=== PATIENT | female | born 1950 | race Two or more races ===

== ENCOUNTER 2024-03-26 16:22 | Inpatient (IN) | payer OTHER ==
[~2024-03-26] VITALS: Ht 170.2 cm; Wt 105.7 kg
[2024-03-26] MEDS ORDERED: LANTUS SOL100 UNIT/1 (16:48)
[2024-03-26] MEDS ORDERED: HUMULIN 70100 UNIT/2 (16:49)
[2024-03-26] MEDS ORDERED: NEURONTIN800 MG (16:49)
--- NOTE | 2024-03-26 16:49 | NUR ---
PTE ALERTA Y ORIENTADA X3, REFIERE HACE 6 MESES LE AMPUTARON 2 DEDOS DE PIE IZQ EN ISHAAN DE HATO YUNI POR DRA.MARIA GA. REFIERE VENIR HOY PORQUE LA HERIDA NO ZOLTAN Y ESTA SUPURANDO, SE OBSERVA AREA INFLAMADA. REFIERE DOLOR. SE JUAN SV Y SE UBICA
[2024-03-26] MEDS ORDERED: 0.9 % SODIUM CHLORIDE 1,000 ML IV SCH (17:30)
--- NOTE | 2024-03-26 17:59 | NUR ---
SE EDUCA A PTE SOBRE TX MEDICO ESTA REFIERE ENTENDER. SE JUAN MUESTRAS DE LABORATORIO UTILIZANDO MEDIDAS ASEPTICAS. SE COLOCA H/L DEBBIE DE EDEMA. SE ADMINISTRA MEDICAMENTOS LOS CUALES TOLERA. SE NOTIFICA ESTUDIO DE RX PENDIENTE.
[2024-03-26] MEDS ORDERED: PIPERACILLIN/TAZOBACTAM SODIUM 3.375 GM in 0.9 % SODIUM CHLORIDE 100 ML IV SCH (18:00)
[2024-03-26 18:07] LABS: HEMATOCRIT 34.4 % (36.0-45.00); HEMOGLOBIN 11.2 g/dL (12.0-15.00); MEAN CELL VOLUME 87.9 fL (80.00-100.00); MEAN CORPUSCULAR HEMOGLOBIN 28.7 pg (27.00-32.0); MEAN CORPUSCULAR HGB CONC 32.7 g/dl (32.0-36.0); PLATELET COUNT 234 K/uL (150-450); RED BLOOD COUNT 3.91 M/uL (4.00-6.00); RED CELL DISTRIBUTION WIDTH 17.3 % (11.5-14.5)
[2024-03-26 18:08] LABS: ERYTHROCYTE SEDIMENTATION RATE > 130 mm/hr
[2024-03-26 18:30] LABS: ALBUMIN 2.8 gm/dL (3.4-5.0); BILIRUBIN TOTAL 0.66 mg/dL (0.3-1.2); CALCIUM 9.2 mg/dL (8.5-10.1); CREATININE SERUM 1.07 mg/dL (0.55-1.02); GFR 50.55; GLOBULINA 6.1 G/DL (2.4-3.5); TOTAL PROTEIN 8.9 gm/dL (6.4-8.2)
[2024-03-26 18:33] LABS: C-REACTIVE PROTEIN 4.83 MG/DL (0.00-0.29); POTASSIUM 4.95 mEq/L (3.5-5.1)
[2024-03-26] MEDS ORDERED: DEXTROSE 50 % IN WATER 0.5 G/ML DISP.SYRIN IV PRN (22:15)
[2024-03-26] MEDS ORDERED: INSULIN LISPRO 1,000 UNIT/10 ML UNITS SUBCUTANEO PRN (22:15)
[2024-03-26] MEDS ORDERED: FAMOTIDINE/PF 20 MG/2 ML VIAL IV SCH (22:31)
[2024-03-26] MEDS ORDERED: KETOROLAC TROMETHAMINE 30 MG VIAL IM SCH (22:35)
[2024-03-27 04:38] VITALS: BP 135/61; O2SAT 97
[2024-03-27 07:50] VITALS: BP 107/53; O2SAT 97
[2024-03-27] MEDS ORDERED: ENALAPRIL MALEATE 2.5 MG TABLET PO SCH (09:00)
[2024-03-27 17:00] VITALS: BP 147/67; O2SAT 99
[2024-03-28 00:47] VITALS: BP 160/74; O2SAT 98
[2024-03-28 08:00] VITALS: BP 90/60
[2024-03-28 16:00] VITALS: BP 129/70; O2SAT 95
[2024-03-28 16:10] LABS: CALCIUM 8.9 mg/dL (8.5-10.1); CREATININE SERUM 1.03 mg/dL (0.55-1.02); GFR 52.82; POTASSIUM 4.85 mEq/L (3.5-5.1)
[2024-03-28] MEDS ORDERED: KETOROLAC TROMETHAMINE 30 MG VIAL IV PRN (18:26)
[2024-03-29 00:43] VITALS: BP 142/81; O2SAT 98
[2024-03-29 09:05] VITALS: BP 97/54; O2SAT 96
[2024-03-29 09:38] LABS: CALCIUM 8.8 mg/dL (8.5-10.1); CREATININE SERUM 1.11 mg/dL (0.55-1.02); GFR 48.45; POTASSIUM 5.01 mEq/L (3.5-5.1)
[2024-03-29 09:39] LABS: HEMOGLOBIN 9.8 g/dL (12.0-15.00); MEAN CELL VOLUME 87.9 fL (80.00-100.00); MEAN CORPUSCULAR HEMOGLOBIN 28.8 pg (27.00-32.0); MEAN CORPUSCULAR HGB CONC 32.8 g/dl (32.0-36.0); PLATELET COUNT 199 K/uL (150-450); RED BLOOD COUNT 3.41 M/uL (4.00-6.00); RED CELL DISTRIBUTION WIDTH 17.3 % (11.5-14.5)
[2024-03-29 09:40] VITALS: BP 119/53
[2024-03-29 16:40] VITALS: BP 147/66; O2SAT 98
[2024-03-29] MEDS ORDERED: VANCOMYCIN HCL 1,000 MG VIAL IV SCH (21:00)
[2024-03-30 00:13] VITALS: BP 135/65; O2SAT 99
[2024-03-30 08:00] VITALS: BP 123/74; O2SAT 95
[2024-03-30 16:00] VITALS: BP 162/84; O2SAT 100
[2024-03-31 01:50] VITALS: BP 127/58; O2SAT 97
[2024-03-31 08:53] VITALS: BP 134/58
[2024-03-31 13:36] LABS: CREATININE SERUM 1.03 mg/dL (0.55-1.02); GFR 52.82; POTASSIUM 4.31 mEq/L (3.5-5.1)
[2024-03-31 16:05] VITALS: BP 154/61; O2SAT 98
[2024-04-01] VITALS: BP 142/65; O2SAT 97
[2024-04-01 08:52] VITALS: BP 144/64; O2SAT 96
[2024-04-01 16:39] VITALS: BP 100/60; O2SAT 98
[2024-04-01 19:03] LABS: URINE APPEARANCE Clear; URINE BILIRRUBIN Negative (NEGATIVE); URINE BLOOD Negative; URINE COLOR Yellow; URINE GLUCOSE Negative (NEGATIVE); URINE KETONE Trace (NEGATIVE); URINE LEUKOCYTE Negative; URINE NITRATE Negative; URINE PROTEIN 30 (NEGATIVE); URINE UROBILINOGEN 0.2 E.U./dl
[2024-04-01 19:06] LABS: URINE BACTERIA 7.5 uL (0.0-1933); URINE EPITHELIAL CELLS 6.6 uL (0.0-38.8)
[2024-04-01 19:10] LABS: URINE RBC 0.9 uL (0.0-20.8); URINE WBC 0.6 uL (0.0-23.2)
[2024-04-02] VITALS: BP 156/67; O2SAT 97
[2024-04-02 08:00] VITALS: BP 114/65; O2SAT 95
[2024-04-02 09:31] LABS: ALBUMIN 2.3 gm/dL (3.4-5.0); BILIRUBIN TOTAL 0.51 mg/dL (0.3-1.2); CALCIUM 8.4 mg/dL (8.5-10.1); CREATININE SERUM 0.88 mg/dL (0.55-1.02); GFR 63.34; GLOBULINA 4.6 G/DL (2.4-3.5); POTASSIUM 4.19 mEq/L (3.5-5.1); TOTAL PROTEIN 6.9 gm/dL (6.4-8.2)
[2024-04-02] MEDS ORDERED: FUROsemide 20 MG/2 ML VIAL IV NR (12:00)
[2024-04-02 16:39] VITALS: BP 148/84; O2SAT 99
[2024-04-03 00:38] VITALS: BP 139/63; O2SAT 100
[2024-04-03 08:00] VITALS: BP 138/62; O2SAT 97
[2024-04-03 14:55] LABS: INR 1.34; PROTHROMBIN TIME 13.8 SECONDS (9.0-11.5)
[2024-04-03 16:00] VITALS: BP 134/78
[2024-04-03] MEDS ORDERED: PIPERACILLIN/TAZOBACTAM SODIUM 3.375 GM in 0.9 % SODIUM CHLORIDE 100 ML IV SCH (18:00)
[2024-04-03] MEDS ORDERED: FAMOTIDINE/PF 20 MG/2 ML VIAL IV SCH (22:06)
[2024-04-04 01:00] VITALS: BP 147/79; O2SAT 97
[2024-04-04 08:00] VITALS: BP 136/83; O2SAT 100
[2024-04-04] MEDS ORDERED: KETOROLAC TROMETHAMINE 30 MG VIAL IV SCH (17:00)
[2024-04-04] MEDS ORDERED: GABAPENTIN 300 MG CAPSULE PO SCH (17:00)
[2024-04-04] MEDS ORDERED: KETOROLAC TROMETHAMINE 30 MG VIAL ONE (19:13)
[2024-04-04 19:45] VITALS: BP 137/63; O2SAT 99
[2024-04-05 00:43] VITALS: BP 136/87; O2SAT 98
[2024-04-05 08:00] VITALS: BP 115/59; O2SAT 100
[2024-04-05] MEDS ORDERED: CEFTRIAXONE SODIUM 2,000 MG in 0.9 % SODIUM CHLORIDE 100 ML IV SCH (14:09)
[2024-04-05 16:00] VITALS: BP 169/78; O2SAT 95
[2024-04-05] MEDS ORDERED: METROnidazole 500 MG TABLET PO SCH (17:00)
[2024-04-06 00:49] VITALS: BP 122/56; O2SAT 97
[2024-04-06 08:00] VITALS: BP 114/61; O2SAT 98
[2024-04-06] MEDS ORDERED: VANCOMYCIN HCL 5 MG/ML REDILUIDO IV SCH (09:00)
[2024-04-06 16:00] VITALS: BP 143/72; O2SAT 98
[2024-04-07 00:42] VITALS: BP 143/80; O2SAT 99
[2024-04-07 08:00] VITALS: BP 147/67; O2SAT 99
[2024-04-07] MEDS ORDERED: FUROsemide 20 MG/2 ML VIAL IV STA (14:01)
[2024-04-07 16:00] VITALS: BP 126/60; O2SAT 95
[2024-04-07] MEDS ORDERED: IPRATROPIUM BROMIDE 0.5 MG/2.5 ML AMPUL.NEB IH SCH (17:00)
[2024-04-07] MEDS ORDERED: BUDESONIDE 0.5 MG/2 ML AMPUL.NEB IH SCH (21:00)
[2024-04-07] MEDS ORDERED: FUROsemide 20 MG/2 ML VIAL IV SCH (21:00)
[2024-04-07] MEDS ORDERED: FAMOtidine 20 MG TABLET PO SCH (21:00)
[2024-04-08 08:00] VITALS: BP 126/59; O2SAT 95
[2024-04-08] MEDS ORDERED: GUAIFENESIN 200 MG/10 ML BLIST.PACK PO SCH (12:00)
[2024-04-08 13:11] LABS: HEMATOCRIT 32.6 % (36.0-45.00); HEMOGLOBIN 10.8 g/dL (12.0-15.00); MEAN CELL VOLUME 89.7 fL (80.00-100.00); MEAN CORPUSCULAR HEMOGLOBIN 29.6 pg (27.00-32.0); PLATELET COUNT 181 K/uL (150-450); RED BLOOD COUNT 3.64 M/uL (4.00-6.00); RED CELL DISTRIBUTION WIDTH 18.5 % (11.5-14.5)
[2024-04-08 13:48] LABS: ALBUMIN 2.7 gm/dL (3.4-5.0); BILIRUBIN TOTAL 0.45 mg/dL (0.3-1.2); CALCIUM 8.7 mg/dL (8.5-10.1); CREATININE SERUM 1.05 mg/dL (0.55-1.02); GFR 51.66; GLOBULINA 5.2 G/DL (2.4-3.5); POTASSIUM 4.56 mEq/L (3.5-5.1); TOTAL PROTEIN 7.9 gm/dL (6.4-8.2)
[2024-04-08 16:00] VITALS: BP 133/79; O2SAT 95
[2024-04-09] VITALS: BP 150/78; O2SAT 95
[2024-04-09 08:00] VITALS: BP 105/68; O2SAT 97
[2024-04-09 10:37] LABS: HEMATOCRIT 29.4 % (36.0-45.00); HEMOGLOBIN 9.8 g/dL (12.0-15.00); MEAN CELL VOLUME 90.5 fL (80.00-100.00); MEAN CORPUSCULAR HEMOGLOBIN 30.1 pg (27.00-32.0); MEAN CORPUSCULAR HGB CONC 33.3 g/dl (32.0-36.0); PLATELET COUNT 162 K/uL (150-450); RED BLOOD COUNT 3.25 M/uL (4.00-6.00); RED CELL DISTRIBUTION WIDTH 18.2 % (11.5-14.5)
[2024-04-09 11:20] LABS: ALBUMIN 2.4 gm/dL (3.4-5.0); BILIRUBIN TOTAL 0.44 mg/dL (0.3-1.2); CALCIUM 8.2 mg/dL (8.5-10.1); CREATININE SERUM 0.97 mg/dL (0.55-1.02); GFR 56.61; GLOBULINA 4.4 G/DL (2.4-3.5); POTASSIUM 4.12 mEq/L (3.5-5.1); TOTAL PROTEIN 6.8 gm/dL (6.4-8.2)
[2024-04-09 16:00] VITALS: BP 136/79; O2SAT 95
[2024-04-09] MEDS ORDERED: FUROsemide 20 MG/2 ML VIAL IV SCH (21:20)
[2024-04-09] MEDS ORDERED: FUROsemide 20 MG/2 ML VIAL ONE (21:50)
[2024-04-10] VITALS: BP 151/68; O2SAT 95
[2024-04-10 08:00] VITALS: BP 166/73; O2SAT 100
[2024-04-10 16:00] VITALS: BP 121/63; O2SAT 97
[2024-04-10] MEDS ORDERED: BUDESONIDE 0.5 MG/2 ML AMPUL.NEB IH ONE (20:45)
[2024-04-11 00:40] VITALS: BP 139/64; O2SAT 96
[2024-04-11 08:19] VITALS: BP 125/60; O2SAT 97
[2024-04-11] MEDS ORDERED: BENZONATATE 100 MG CAPSULE PO SCH (13:00)
[2024-04-11 16:00] VITALS: BP 133/60; O2SAT 97
[2024-04-12 01:04] VITALS: BP 156/72
[2024-04-12 07:15] LABS: HEMATOCRIT 31.6 % (36.0-45.00); HEMOGLOBIN 10.5 g/dL (12.0-15.00); MEAN CELL VOLUME 90.2 fL (80.00-100.00); MEAN CORPUSCULAR HGB CONC 33.2 g/dl (32.0-36.0); PLATELET COUNT 184 K/uL (150-450); RED CELL DISTRIBUTION WIDTH 19.8 % (11.5-14.5)
[2024-04-12 07:42] LABS: ALBUMIN 2.6 gm/dL (3.4-5.0); BILIRUBIN TOTAL 0.41 mg/dL (0.3-1.2); CALCIUM 8.4 mg/dL (8.5-10.1); CREATININE SERUM 1.11 mg/dL (0.55-1.02); GFR 48.45; GLOBULINA 4.6 G/DL (2.4-3.5); POTASSIUM 4.38 mEq/L (3.5-5.1); TOTAL PROTEIN 7.2 gm/dL (6.4-8.2)
[2024-04-12] MEDS ORDERED: ENALAPRIL MALEATE 5 MG TABLET PO SCH (09:00)
[2024-04-13 01:01] VITALS: BP 129/87; O2SAT 99
[2024-04-13] MEDS ORDERED: CEFTRIAXONE SODIUM 2,000 MG VIAL ONE (07:53)
[2024-04-13 08:10] VITALS: BP 128/83; O2SAT 98
[2024-04-13 16:32] VITALS: BP 140/55; O2SAT 95
[2024-04-14] VITALS: BP 147/82; O2SAT 97
[2024-04-14] MEDS ORDERED: CEFTRIAXONE SODIUM 2,000 MG VIAL ONE (07:26)
[2024-04-14 08:16] VITALS: BP 135/82; O2SAT 98
[2024-04-14 16:00] VITALS: BP 167/71; O2SAT 95
[2024-04-14] MEDS ORDERED: ASPIRIN 81 MG TAB.CHEW PO SCH (16:15)
[2024-04-14] MEDS ORDERED: ATORVASTATIN CALCIUM 20 MG TABLET PO SCH (16:16)
[2024-04-15] VITALS: BP 124/57; O2SAT 97
[2024-04-15] MEDS ORDERED: CEFTRIAXONE SODIUM 2,000 MG VIAL ONE (08:10)
[2024-04-15 09:44] VITALS: BP 114/78; O2SAT 98
[2024-04-15] MEDS ORDERED: BUDESONIDE 0.5 MG/2 ML AMPUL.NEB IH NR (12:00)
[2024-04-15 16:00] VITALS: BP 122/57; O2SAT 94
[2024-04-15] MEDS ORDERED: BUDESONIDE 0.5 MG/2 ML AMPUL.NEB IH SCH (21:00)
[2024-04-16] VITALS: BP 140/54; O2SAT 96
[2024-04-16] MEDS ORDERED: CEFTRIAXONE SODIUM 2,000 MG VIAL ONE (07:53)
[2024-04-16 08:00] VITALS: BP 158/72; O2SAT 97
[2024-04-16 16:41] VITALS: BP 161/65; O2SAT 95
[2024-04-17 01:14] VITALS: BP 128/60; O2SAT 97
[2024-04-17 07:39] LABS: HEMATOCRIT 31.5 % (36.0-45.00); HEMOGLOBIN 10.3 g/dL (12.0-15.00); MEAN CELL VOLUME 91.6 fL (80.00-100.00); MEAN CORPUSCULAR HGB CONC 32.7 g/dl (32.0-36.0); PLATELET COUNT 163 K/uL (150-450); RED BLOOD COUNT 3.45 M/uL (4.00-6.00); RED CELL DISTRIBUTION WIDTH 20.7 % (11.5-14.5)
[2024-04-17 07:46] VITALS: BP 120/72; O2SAT 98
[2024-04-17 07:59] LABS: ALBUMIN 2.5 gm/dL (3.4-5.0); BILIRUBIN TOTAL 0.5 mg/dL (0.3-1.2); CALCIUM 8.1 mg/dL (8.5-10.1); CREATININE SERUM 0.95 mg/dL (0.55-1.02); GFR 57.99; GLOBULINA 4.4 G/DL (2.4-3.5); POTASSIUM 3.65 mEq/L (3.5-5.1); TOTAL PROTEIN 6.9 gm/dL (6.4-8.2)
[2024-04-17] MEDS ORDERED: CEFTRIAXONE SODIUM 2,000 MG VIAL ONE (08:04)
[2024-04-17] MEDS ORDERED: ONDANSETRON HCL 4 MG in 0.9 % SODIUM CHLORIDE 50 ML IV PRN (12:15)
[2024-04-17 16:53] VITALS: BP 117/79; O2SAT 96
[2024-04-17] MEDS ORDERED: CLOTRIMAZOLE 10 MG TROCHE MM SCH (21:00)
[2024-04-18 00:05] LABS: C-REACTIVE PROTEIN 0.83 MG/DL (0.00-0.29)
[2024-04-18 00:57] VITALS: BP 159/70; O2SAT 99
[2024-04-18 08:00] VITALS: BP 135/63; O2SAT 96
[2024-04-18] MEDS ORDERED: CEFTRIAXONE SODIUM 2,000 MG VIAL ONE (08:02)
[2024-04-18] MEDS ORDERED: EMOLLIENTS 6 OZ BOTTLE TOP SCH (09:00)
[2024-04-19] VITALS: BP 129/62; O2SAT 95
[2024-04-19 08:00] VITALS: BP 135/65; O2SAT 100
[2024-04-19 16:00] VITALS: BP 162/78; O2SAT 95
== END 2024-04-19 17:30 | disposition home or self-care (01) | DRG 464 ==
LOC: ER 16:24 → SURH 22:30 → SEC-K 22:30 → SURH 03-27 00:48
PROVIDERS: General Practice; Internal Medicine; Internal Medicine Infectious Disease; Specialist; ADMIT Internal Medicine; ATTEND Internal Medicine
PROC: 0QBP0ZZ Excision of Left Metatarsal, Open Approach (ICD-10-PCS; 2024-03-28)
PROC: BL31ZZZ Magnetic Resonance Imaging (MRI) of Lower Extremity Connective Tissue (ICD-10-PCS; 2024-03-28)
PROC: 02HV33Z Insertion of Infusion Device into Superior Vena Cava, Percutaneous Approach (ICD-10-PCS; 2024-03-31)
PROC: 3E04329 Introduction of Other Anti-infective into Central Vein, Percutaneous Approach (ICD-10-PCS; 2024-03-31)
PROC: 0QBP0ZZ Excision of Left Metatarsal, Open Approach (ICD-10-PCS; 2024-04-04)
PROC: 0JBR0ZZ Excision of Left Foot Subcutaneous Tissue and Fascia, Open Approach (ICD-10-PCS; principal; 2024-04-04 17:00)
PROC: 3E0F7GC Introduction of Other Therapeutic Substance into Respiratory Tract, Via Natural or Artificial Opening (ICD-10-PCS; 2024-04-07)
PROC: B44HZZZ Ultrasonography of Bilateral Lower Extremity Arteries (ICD-10-PCS; 2024-04-09)
DX: T87.44 Infection of amputation stump, left lower extremity (principal); E11.52 Type 2 diabetes mellitus with diabetic peripheral angiopathy with gangrene; L97.528 Non-pressure chronic ulcer of other part of left foot with other specified severity; M86.172 Other acute osteomyelitis, left ankle and foot; M86.672 Other chronic osteomyelitis, left ankle and foot; E11.621 Type 2 diabetes mellitus with foot ulcer; J45.909 Unspecified asthma, uncomplicated; E86.0 Dehydration; R79.82 Elevated C-reactive protein (CRP); I12.9 Hypertensive chronic kidney disease with stage 1 through stage 4 chronic kidney disease, or unspecified chronic kidney disease; E11.22 Type 2 diabetes mellitus with diabetic chronic kidney disease; N18.32 Chronic kidney disease, stage 3b; Z79.4 Long term (current) use of insulin; B96.4 Proteus (mirabilis) (morganii) as the cause of diseases classified elsewhere; B95.1 Streptococcus, group B, as the cause of diseases classified elsewhere; B95.62 Methicillin resistant Staphylococcus aureus infection as the cause of diseases classified elsewhere; B95.2 Enterococcus as the cause of diseases classified elsewhere; B96.89 Other specified bacterial agents as the cause of diseases classified elsewhere

== ENCOUNTER 2024-05-09 09:31 | Inpatient (IN) | payer OTHER ==
[~2024-05-09] VITALS: Ht 160 cm; Wt 149.7 kg
[~2024-05-09 09:31] MED LIST: HUMULIN 70100 UNIT/2; LANTUS SOL100 UNIT/1; NEURONTIN800 MG
--- NOTE | 2024-05-09 09:43 | NUR ---
SE RECIBE PTE ALERTA Y ORIENTADA X3 EN AMBULANCIA LA MISMA SE OBSERVA CON CANULA NASAL A 3 LITROS Y PICC LINE EN BRAZO DERECHO. PTE REFIERE DOLOR DE PECHO Y DIFUCLTAD RESPIRATORIA DESDE HACE 4 OH. SE REALIZAN VITALES Y SE REALIZA EKG EL CUAL SE PRESENTA A DRA CARRERO. LA MISMA REFIERE QUE SE COLOQUE EN CHEST PAIN.
[2024-05-09] MEDS ORDERED: ASPIRIN 81 MG TAB.CHEW PO ONE (09:45)
[2024-05-09] MEDS ORDERED: MORPHINE SULFATE 4 MG/ML VIAL IV ONE (09:45)
[2024-05-09] MEDS ORDERED: 0.9 % SODIUM CHLORIDE 1,000 ML IV ONE (09:45)
[2024-05-09] MEDS ORDERED: FUROsemide 20 MG/2 ML VIAL IV ONE (09:45)
[2024-05-09] MEDS ORDERED: BENZONATATE 200 MG CAPSULE PO ONE (09:45)
[2024-05-09] MEDS ORDERED: NIFEDIPINE 10 MG CAPSULE PO ONE ×2 (09:45→09:53)
[2024-05-09] MEDS ORDERED: LEVALBUTEROL HCL 1.25 MG/3 ML SOLUTION IH ONE (09:45)
[2024-05-09] MEDS ORDERED: LEVALBUTEROL HCL 0.63 MG/3 ML SOLUTION IH ONE (09:50)
[2024-05-09] MEDS ORDERED: FUROsemide 20 MG/2 ML VIAL ONE ×2 (09:54→14:40)
[2024-05-09 10:06] LABS: ABG PH 7.416 (7.35-7.45); ABG PO2 83.9 mmHg (80-100); ABG pCO2 37.5 mmHg (35-45); BASE EXCESS -0.6 mmol/l; BICARBONATE 23.6 mmol/l (23-25); SaO2 96.4 %; Tco2 24.7 mmol/l
[2024-05-09 10:19] LABS: o2 28 %
[2024-05-09 10:20] LABS: allen test SATISFACTORY; puncture site RADIAL LEFT
--- NOTE | 2024-05-09 10:44 | NUR ---
SE RECIBE PTE EN UNDIDAD DE CHEST PAIN ELENO #18 ALERTA Y ORIENTADA X3, SE LE ORIENTA SOBRE TX MEDICO Y REFIERE ENTENDER, SE REALIZA JAVON DE MUESTRAS Y ADMINISTRA MEDICAMENTO SHIELA ORDEN MEDICA. SE OBSERVA PTE CON PICC LINE EN BRAZO DERECHO EL MISMO PATENTE DEBBIE DE EDEMA Y ERRITEMA. PTE CON CANULA NASAL BAJANDO A 3LPM Y GUERRERO CATHETER CON ORINA COLOR AMARILLO NABIL. SE OBSERVAN EXTREMIDADES INFERIORES Y SUPERIOSRES LIBRES DE EDEMA. SE MANTIENEN BARRANDAS ELEVADAS Y CAMA CON SEGURO POR NAPIER SEGURIDAD.
[2024-05-09 10:55] LABS: HEMATOCRIT 38.7 % (36.0-45.00); HEMOGLOBIN 12.7 g/dL (12.0-15.00); MEAN CELL VOLUME 94.2 fL (80.00-100.00); MEAN CORPUSCULAR HGB CONC 32.9 g/dl (32.0-36.0); PLATELET COUNT 190 K/uL (150-450); RED CELL DISTRIBUTION WIDTH 19.3 % (11.5-14.5)
[2024-05-09 10:58] LABS: PH,URINE 5.5 (5.0-8.0); URINE APPEARANCE Clear; URINE BILIRRUBIN Negative (NEGATIVE); URINE BLOOD Trace; URINE COLOR Yellow; URINE GLUCOSE Negative (NEGATIVE); URINE KETONE Trace (NEGATIVE); URINE LEUKOCYTE Negative; URINE NITRATE Negative
[2024-05-09 11:01] LABS: URINE BACTERIA 16.3 uL (0.0-1933); URINE EPITHELIAL CELLS 13.7 uL (0.0-38.8); URINE RBC 6.2 uL (0.0-20.8); URINE WBC 6.4 uL (0.0-23.2)
[2024-05-09 11:03] LABS: URINE CAST 0.61 uL (0.0-1.40); URINE PROTEIN 100 (NEGATIVE)
[2024-05-09 11:08] LABS: D DIMER 6.46 MG/L
[2024-05-09 11:39] LABS: BILIRUBIN TOTAL 1.44 mg/dL (0.3-1.2); CALCIUM 8.9 mg/dL (8.5-10.1); CREATININE SERUM 1.04 mg/dL (0.55-1.02); GFR 52.24; GLOBULINA 5.2 G/DL (2.4-3.5); POTASSIUM 4.4 mEq/L (3.5-5.1); TOTAL PROTEIN 8.2 gm/dL (6.4-8.2)
[2024-05-09] MEDS ORDERED: FUROsemide 20 MG/2 ML VIAL IV SCH (13:05)
[2024-05-09] MEDS ORDERED: ASPIRIN 81 MG TABLET.EC PO SCH (13:06)
[2024-05-09] MEDS ORDERED: IPRATROPIUM BROMIDE 0.5 MG/2.5 ML AMPUL.NEB IH SCH ×2 (13:09→17:00)
[2024-05-09] MEDS ORDERED: ONDANSETRON HCL 4 MG in 0.9 % SODIUM CHLORIDE 50 ML IV PRN (13:15)
[2024-05-09] MEDS ORDERED: CEFTRIAXONE SODIUM 2,000 MG in 0.9 % SODIUM CHLORIDE 100 ML IV SCH (13:17)
[2024-05-09] MEDS ORDERED: BENZONATATE 100 MG CAPSULE PO PRN (13:30)
[2024-05-09] MEDS ORDERED: DEXTROSE 50 % IN WATER 0.5 G/ML DISP.SYRIN IV PRN (13:45)
[2024-05-09] MEDS ORDERED: INSULIN LISPRO 1,000 UNIT/10 ML UNITS SUBCUTANEO PRN (13:45)
[2024-05-09] MEDS ORDERED: LISINOPRIL 5 MG TABLET PO SCH (14:15)
[2024-05-09] MEDS ORDERED: CARVEDILOL 6.25 MG TABLET PO SCH (14:18)
[2024-05-09] MEDS ORDERED: CEFTRIAXONE SODIUM 2,000 MG VIAL ONE (14:41)
[2024-05-09 15:03] VITALS: BP 140/70; O2SAT 97
[2024-05-09 15:06] LABS: ALT/SGPT 24 U/L (12-78); AST/SGOT 36 U/L (15-37); LDH 314 U/L (84-246); PHOSPHOKINASE CREATININE 160 U/L (26-192)
[2024-05-09] MEDS ORDERED: IPRATROPIUM BROMIDE 0.5 MG/2.5 ML AMPUL.NEB IH ONE (15:28)
[2024-05-09 16:07] VITALS: BP 129/79; O2SAT 97
[2024-05-09 17:08] LABS: CHOL HDL RATIO 3.2 (0-5.0); MAGNESIUM 1.5 mg/dL (1.8-2.4)
[2024-05-09] MEDS ORDERED: FUROsemide 40 MG/4 ML VIAL IV STA (17:27)
[2024-05-09] MEDS ORDERED: FUROsemide 40 MG/4 ML VIAL IV SCH (17:27)
[2024-05-09] MEDS ORDERED: BUDESONIDE 0.5 MG/2 ML AMPUL.NEB IH SCH (21:00)
[2024-05-09 21:39] VITALS: O2SAT 90
[2024-05-09 22:59] VITALS: BP 116/55; O2SAT 89
[2024-05-10] VITALS (9 sets, daily range): BP systolic 106–127; BP diastolic 58–75; O2SAT 90–97
[2024-05-10] MEDS ORDERED: TRAMADOL HCL 50 MG TABLET PO PRN (21:30)
[2024-05-10] MEDS ORDERED: ACETAMINOPHEN 500 MG GEL..CAP PO PRN (21:30)
[2024-05-11] VITALS (9 sets, daily range): BP systolic 87–120; BP diastolic 49–70; O2SAT 93–98
[2024-05-12] VITALS (9 sets, daily range): BP systolic 94–133; BP diastolic 56–94; O2SAT 90–100
[2024-05-13] VITALS (9 sets, daily range): BP systolic 108–138; BP diastolic 71–93; O2SAT 95–100
[2024-05-13 07:30] LABS: BILIRUBIN TOTAL 0.84 mg/dL (0.3-1.2); CREATININE SERUM 1.24 mg/dL (0.55-1.02); GFR 42.64; GLOBULINA 4.4 G/DL (2.4-3.5); POTASSIUM 3.63 mEq/L (3.5-5.1); TOTAL PROTEIN 6.4 gm/dL (6.4-8.2)
[2024-05-13] MEDS ORDERED: BUMETANIDE 2.5 MG/10 ML VIAL IV SCH (09:00)
[2024-05-13 19:20] LABS: TP PLEURAL FLUID 3.5 g/dl
[2024-05-13 19:23] LABS: PLEURAL FLUID COLOR RED-BLOODY
[2024-05-13 19:24] LABS: PLEURAL FLUID APPEARANCE TURBID
[2024-05-13 19:43] LABS: MONONUCLEAR 47 %; POLYMORPHONUCLEAR 53 %
[2024-05-14] VITALS (9 sets, daily range): BP systolic 123–156; BP diastolic 52–81; O2SAT 83–100
[2024-05-14 19:10] LABS: INR 1.29; PARTIAL THROMBOPLASTIN TIME 36.2 SECONDS (22.0-34.0); PROTHROMBIN TIME 13.8 SECONDS (9.0-11.5)
[2024-05-15] VITALS (7 sets, daily range): BP systolic 120–170; BP diastolic 76–80; O2SAT 96–98
[2024-05-16 01:18] VITALS: BP 122/74; O2SAT 98
[2024-05-16 02:04] LABS: HEMATOCRIT 34.8 % (36.0-45.00); HEMOGLOBIN 11.6 g/dL (12.0-15.00); MEAN CELL VOLUME 93.3 fL (80.00-100.00); MEAN CORPUSCULAR HEMOGLOBIN 31.1 pg (27.00-32.0); MEAN CORPUSCULAR HGB CONC 33.3 g/dl (32.0-36.0); PLATELET COUNT 221 K/uL (150-450); RED BLOOD COUNT 3.73 M/uL (4.00-6.00); RED CELL DISTRIBUTION WIDTH 17.2 % (11.5-14.5)
[2024-05-16 02:10] LABS: INR 1.26; PROTHROMBIN TIME 13.5 SECONDS (9.0-11.5)
[2024-05-16 02:19] LABS: BILIRUBIN TOTAL 0.58 mg/dL (0.3-1.2); CALCIUM 8.1 mg/dL (8.5-10.1); CREATININE SERUM 0.8 mg/dL (0.55-1.02); GFR 70.71; GLOBULINA 4.7 G/DL (2.4-3.5); POTASSIUM 4.34 mEq/L (3.5-5.1); TOTAL PROTEIN 6.7 gm/dL (6.4-8.2)
[2024-05-16 05:54] VITALS: O2SAT 97
[2024-05-16 09:41] VITALS: O2SAT 100
[2024-05-16 09:43] VITALS: BP 135/62; O2SAT 95
== END 2024-05-16 10:50 | disposition designated cancer center or children's hospital (05) | DRG 264 ==
LOC: ER 09:31 → SEC-K 13:26 → MEDI 15:43
PROVIDERS: General Practice; Internal Medicine; Radiology Vascular & Interventional Radiology; ADMIT Internal Medicine; ATTEND Internal Medicine
PROC: BB24YZZ Computerized Tomography (CT Scan) of Bilateral Lungs using Other Contrast (ICD-10-PCS; 2024-05-09)
PROC: B246ZZZ Ultrasonography of Right and Left Heart (ICD-10-PCS; 2024-05-09)
PROC: 4A12X4Z Monitoring of Cardiac Electrical Activity, External Approach (ICD-10-PCS; 2024-05-09)
PROC: 3E0F7GC Introduction of Other Therapeutic Substance into Respiratory Tract, Via Natural or Artificial Opening (ICD-10-PCS; 2024-05-09)
PROC: 0JBR0ZZ Excision of Left Foot Subcutaneous Tissue and Fascia, Open Approach (ICD-10-PCS; principal; 2024-05-13)
PROC: 0JBQ0ZZ Excision of Right Foot Subcutaneous Tissue and Fascia, Open Approach (ICD-10-PCS; 2024-05-13)
PROC: 0W9B3ZZ Drainage of Left Pleural Cavity, Percutaneous Approach (ICD-10-PCS; 2024-05-13)
DX: I50.23 Acute on chronic systolic (congestive) heart failure (principal); I38 Endocarditis, valve unspecified; I42.8 Other cardiomyopathies; J90 Pleural effusion, not elsewhere classified; I27.20 Pulmonary hypertension, unspecified; I11.0 Hypertensive heart disease with heart failure; I34.0 Nonrheumatic mitral (valve) insufficiency; E11.621 Type 2 diabetes mellitus with foot ulcer; L97.529 Non-pressure chronic ulcer of other part of left foot with unspecified severity; L97.519 Non-pressure chronic ulcer of other part of right foot with unspecified severity; Z79.4 Long term (current) use of insulin; Z89.422 Acquired absence of other left toe(s)

== ENCOUNTER 2024-07-29 15:06 | Inpatient (IN) | payer OTHER ==
[~2024-07-29] VITALS: Ht 167.6 cm; Wt 90.7 kg
[2024-07-29] MEDS ORDERED: CHILDREN'S ASPI81 MG (15:29)
[2024-07-29] MEDS ORDERED: FARXIGA10 MG (15:29)
[2024-07-29] MEDS ORDERED: BUMETANIDE1 MG (15:29)
[2024-07-29] MEDS ORDERED: ATORVASTATIN CA20 MG (15:29)
[2024-07-29] MEDS ORDERED: BRILINTA90 MG (15:29)
[2024-07-29] MEDS ORDERED: TOPROL XL25 M1 (15:29)
--- NOTE | 2024-07-29 15:33 | NUR ---
SE RECIBE PTE ALERTA Y OORIENTAD LA CUAL REFIERE VENIR POR REFERIDO POR DR. JOSE MORRIS PARA ADMISION POR GRANGENA EN PIE OMAR DEBIOD A TRAUMA. SE MIDEN S/V Y DXT A PTE Y SE UBICA.
[2024-07-29] MEDS ORDERED: FAMOtidine 10 MG/ML (4ML VIAL) IV ONE (16:30)
[2024-07-29] MEDS ORDERED: CEFAZOLIN SODIUM 1,000 MG VIAL IV ONE (16:30)
[2024-07-29 16:56] LABS: HEMATOCRIT 36.7 % (36.0-45.00); HEMOGLOBIN 12.4 g/dL (12.0-15.00); MEAN CELL VOLUME 88.7 fL (80.00-100.00); MEAN CORPUSCULAR HEMOGLOBIN 29.8 pg (27.00-32.0); MEAN CORPUSCULAR HGB CONC 33.6 g/dl (32.0-36.0); PLATELET COUNT 196 K/uL (150-450); RED BLOOD COUNT 4.14 M/uL (4.00-6.00); RED CELL DISTRIBUTION WIDTH 16.4 % (11.5-14.5)
[2024-07-29 16:58] LABS: ERYTHROCYTE SEDIMENTATION RATE 97 mm/hr
[2024-07-29 17:21] LABS: INR 1.13; PARTIAL THROMBOPLASTIN TIME 27.5 SECONDS (22.0-34.0); PROTHROMBIN TIME 12.2 SECONDS (9.0-11.5)
[2024-07-29 17:30] LABS: ALBUMIN 3.3 gm/dL (3.4-5.0); BILIRUBIN TOTAL 0.86 mg/dL (0.3-1.2); CALCIUM 9.3 mg/dL (8.5-10.1); CREATININE SERUM 1.61 mg/dL (0.55-1.02); GFR 31.55; GLOBULINA 5.9 G/DL (2.4-3.5); POTASSIUM 3.72 mEq/L (3.5-5.1); TOTAL PROTEIN 9.2 gm/dL (6.4-8.2)
[2024-07-29 17:31] LABS: C-REACTIVE PROTEIN 7.98 MG/DL (0.00-0.29)
--- NOTE | 2024-07-29 17:37 | NUR ---
DAMIAN ORIENTA A PTE SOBRE TX MEDICO ORDENADO POR . REALIZA JAVON DE MUESTRAS DE LAB SHIELA ORDEN MEDICA Y BAJO MEDIDAS ASEPTICAS. VENOPUNCION PATENTE DEBBIE DE EDEMA Y ERITEMA. SE NOTIFICA ESTUDIO ORDENADO.
[2024-07-29 17:49] LABS: PH,URINE 5.5 (5.0-8.0); URINE APPEARANCE Clear; URINE BILIRRUBIN Negative (NEGATIVE); URINE BLOOD Negative; URINE COLOR Yellow; URINE KETONE Negative (NEGATIVE); URINE LEUKOCYTE Negative; URINE NITRATE Negative; URINE PROTEIN Negative (NEGATIVE); URINE UROBILINOGEN 0.2 E.U./dl
[2024-07-29 17:53] LABS: URINE BACTERIA 99.1 uL (0.0-1933); URINE EPITHELIAL CELLS 10.9 uL (0.0-38.8); URINE WBC 4.5 uL (0.0-23.2)
[2024-07-29 17:56] LABS: URINE CAST 0.58 uL (0.0-1.40); URINE GLUCOSE >=1000 MG/DL (NEGATIVE); URINE RBC 1.3 uL (0.0-20.8)
[2024-07-29] MEDS ORDERED: VANCOMYCIN HCL 1,000 MG VIAL IV SCH (19:21)
[2024-07-29] MEDS ORDERED: GABAPENTIN 800 MG TABLET PO SCH (19:22)
[2024-07-29] MEDS ORDERED: INSULIN LISPRO 1,000 UNIT/10 ML UNITS SUBCUTANEO PRN (19:30)
[2024-07-29] MEDS ORDERED: DEXTROSE 50 % IN WATER 0.5 G/ML DISP.SYRIN IV PRN (19:30)
[2024-07-29] MEDS ORDERED: ACETAMINOPHEN 500 MG GEL..CAP PO PRN (19:30)
[2024-07-29 23:00] VITALS: BP 112/52; O2SAT 95
[2024-07-30 08:53] VITALS: BP 103/49; O2SAT 98
[2024-07-30] MEDS ORDERED: ATORVASTATIN CALCIUM 40 MG TABLET PO SCH (09:00)
[2024-07-30] MEDS ORDERED: TICAGRELOR 90 MG TABLET PO SCH (09:00)
[2024-07-30] MEDS ORDERED: CEFTRIAXONE SODIUM 2,000 MG in 0.9 % SODIUM CHLORIDE 100 ML IV SCH (09:00)
[2024-07-30] MEDS ORDERED: ASPIRIN 81 MG TAB.CHEW PO SCH (09:00)
[2024-07-30] MEDS ORDERED: METOPROLOL SUCCINATE 25 MG TAB.SR.24H PO SCH (09:00)
[2024-07-30] MEDS ORDERED: METRONIDAZOLE/SODIUM CHLORIDE 100 ML IV SCH (17:00)
[2024-07-30] MEDS ORDERED: INSULIN LISPRO 1,000 UNIT/10 ML UNITS SUBCUTANEO SCH (17:00)
[2024-07-30] MEDS ORDERED: INSULIN GLARGINE,HUM.REC.ANLOG 1,000 UNITS/10 ML UNITS SUBCUTANEO SCH (17:00)
[2024-07-30 18:29] VITALS: BP 107/69; O2SAT 99
[2024-07-30 20:47] VITALS: BP 149/58; O2SAT 97
[2024-07-30] MEDS ORDERED: LINEZOLID 600 MG TABLET PO SCH (21:00)
[2024-07-31 01:28] VITALS: BP 123/63; O2SAT 98
[2024-07-31 09:19] VITALS: BP 113/83; O2SAT 96
[2024-07-31 22:21] VITALS: BP 130/75; O2SAT 97
[2024-08-01 03:00] VITALS: BP 128/72
[2024-08-01 06:30] LABS: HEMATOCRIT 34.5 % (36.0-45.00); HEMOGLOBIN 11.5 g/dL (12.0-15.00); MEAN CELL VOLUME 88.2 fL (80.00-100.00); MEAN CORPUSCULAR HEMOGLOBIN 29.5 pg (27.00-32.0); MEAN CORPUSCULAR HGB CONC 33.4 g/dl (32.0-36.0); PLATELET COUNT 207 K/uL (150-450); RED BLOOD COUNT 3.91 M/uL (4.00-6.00); RED CELL DISTRIBUTION WIDTH 16.2 % (11.5-14.5)
[2024-08-01 07:18] LABS: ALBUMIN 2.7 gm/dL (3.4-5.0); BILIRUBIN TOTAL 0.45 mg/dL (0.3-1.2); C-REACTIVE PROTEIN 11.3 MG/DL (0.00-0.29); CALCIUM 9.1 mg/dL (8.5-10.1); CREATININE SERUM 1.62 mg/dL (0.55-1.02); GFR 31.32; GLOBULINA 5.4 G/DL (2.4-3.5); MAGNESIUM 1.7 mg/dL (1.8-2.4); PHOSPHOROUS 3.9 mg/dL (2.5-4.9); POTASSIUM 3.72 mEq/L (3.5-5.1); TOTAL PROTEIN 8.1 gm/dL (6.4-8.2)
[2024-08-01 08:32] VITALS: BP 101/68; O2SAT 98
[2024-08-01] MEDS ORDERED: MEROPENEM 500 MG/VIAL VIAL IV SCH (17:00)
[2024-08-01] MEDS ORDERED: LACTOBACILLUS ACIDOPHILUS 1 CAP CAP PO SCH (17:00)
[2024-08-01] MEDS ORDERED: INSULIN LISPRO 1,000 UNIT/10 ML UNITS SUBCUTANEO SCH (17:00)
[2024-08-01 18:07] VITALS: BP 95/64; O2SAT 100
[2024-08-02 02:09] VITALS: BP 103/50; O2SAT 98
[2024-08-02 10:35] VITALS: BP 100/68; O2SAT 97
[2024-08-02 17:57] VITALS: BP 104/66; O2SAT 98
[2024-08-03 03:49] VITALS: BP 112/53; O2SAT 95
[2024-08-03] MEDS ORDERED: INSULIN LISPRO 1,000 UNIT/10 ML UNITS SUBCUTANEO SCH (08:00)
[2024-08-03 11:02] VITALS: BP 151/65; O2SAT 97
[2024-08-03] MEDS ORDERED: INSULIN GLARGINE,HUM.REC.ANLOG 1,000 UNITS/10 ML UNITS SUBCUTANEO SCH (17:00)
[2024-08-03 18:24] VITALS: BP 93/50
[2024-08-04 02:18] VITALS: BP 113/75; O2SAT 98
[2024-08-04] MEDS ORDERED: INSULIN LISPRO 1,000 UNIT/10 ML UNITS SUBCUTANEO SCH (08:00)
[2024-08-04 09:57] VITALS: BP 100/50; O2SAT 98
[2024-08-04 15:57] LABS: HEMATOCRIT 34.7 % (36.0-45.00); HEMOGLOBIN 11.3 g/dL (12.0-15.00); MEAN CELL VOLUME 88.6 fL (80.00-100.00); MEAN CORPUSCULAR HEMOGLOBIN 28.8 pg (27.00-32.0); MEAN CORPUSCULAR HGB CONC 32.5 g/dl (32.0-36.0); PLATELET COUNT 212 K/uL (150-450); RED BLOOD COUNT 3.92 M/uL (4.00-6.00); RED CELL DISTRIBUTION WIDTH 15.8 % (11.5-14.5)
[2024-08-04 16:13] LABS: CALCIUM 8.8 mg/dL (8.5-10.1); CREATININE SERUM 1.11 mg/dL (0.55-1.02); GFR 48.45; POTASSIUM 3.83 mEq/L (3.5-5.1)
[2024-08-04 17:53] VITALS: BP 111/79; O2SAT 97
[2024-08-04] MEDS ORDERED: INSULIN GLARGINE,HUM.REC.ANLOG 1,000 UNITS/10 ML UNITS SUBCUTANEO SCH (21:00)
[2024-08-05 01:22] VITALS: BP 131/60; O2SAT 98
[2024-08-05 08:19] VITALS: BP 100/58; O2SAT 99
[2024-08-05] MEDS ORDERED: METOPROLOL SUCCINATE 25 MG TAB.SR.24H PO SCH (17:00)
[2024-08-05] MEDS ORDERED: INSULIN GLARGINE,HUM.REC.ANLOG 1,000 UNITS/10 ML UNITS SUBCUTANEO SCH (21:30)
[2024-08-05 22:51] VITALS: BP 103/55
[2024-08-06] MEDS ORDERED: ACETAMINOPHEN 500 MG GEL..CAP PO PRN (01:45)
[2024-08-06 02:17] VITALS: BP 92/41; O2SAT 96
[2024-08-06 20:06] VITALS: BP 98/57
[2024-08-07 02:55] VITALS: BP 114/77; O2SAT 97
[2024-08-07 06:08] LABS: HEMATOCRIT 30.9 % (36.0-45.00); HEMOGLOBIN 10.3 g/dL (12.0-15.00); MEAN CELL VOLUME 88.7 fL (80.00-100.00); MEAN CORPUSCULAR HEMOGLOBIN 29.5 pg (27.00-32.0); MEAN CORPUSCULAR HGB CONC 33.3 g/dl (32.0-36.0); PLATELET COUNT 161 K/uL (150-450); RED BLOOD COUNT 3.48 M/uL (4.00-6.00); RED CELL DISTRIBUTION WIDTH 15.8 % (11.5-14.5)
[2024-08-07 06:37] LABS: BILIRUBIN TOTAL 0.58 mg/dL (0.3-1.2); CALCIUM 8.5 mg/dL (8.5-10.1); CREATININE SERUM 0.89 mg/dL (0.55-1.02); GFR 62.52; GLOBULINA 4.7 G/DL (2.4-3.5); MAGNESIUM 1.7 mg/dL (1.8-2.4); PHOSPHOROUS 2.9 mg/dL (2.5-4.9); POTASSIUM 4.36 mEq/L (3.5-5.1); TOTAL PROTEIN 6.7 gm/dL (6.4-8.2)
[2024-08-07 06:39] LABS: C-REACTIVE PROTEIN 5.26 MG/DL (0.00-0.29)
[2024-08-07 09:08] VITALS: BP 111/90; O2SAT 97
[2024-08-07 18:31] VITALS: BP 140/63; O2SAT 98
[2024-08-08 03:02] VITALS: BP 115/53; O2SAT 98
[2024-08-08 10:25] VITALS: BP 107/47; O2SAT 97
[2024-08-08 18:04] VITALS: BP 114/77
[2024-08-09 02:25] VITALS: BP 133/55; O2SAT 96
[2024-08-09 08:23] LABS: BILIRUBIN TOTAL 0.37 mg/dL (0.3-1.2); CALCIUM 8.3 mg/dL (8.5-10.1); CREATININE SERUM 0.95 mg/dL (0.55-1.02); GFR 57.99; GLOBULINA 4.7 G/DL (2.4-3.5); MAGNESIUM 1.7 mg/dL (1.8-2.4); PHOSPHOROUS 2.6 mg/dL (2.5-4.9); POTASSIUM 5.11 mEq/L (3.5-5.1); TOTAL PROTEIN 6.7 gm/dL (6.4-8.2)
[2024-08-09 08:25] LABS: C-REACTIVE PROTEIN 2.5 MG/DL (0.00-0.29)
[2024-08-09 08:46] LABS: HEMATOCRIT 29.4 % (36.0-45.00); MEAN CELL VOLUME 89.3 fL (80.00-100.00); MEAN CORPUSCULAR HGB CONC 32.7 g/dl (32.0-36.0); PLATELET COUNT 149 K/uL (150-450); RED BLOOD COUNT 3.29 M/uL (4.00-6.00); RED CELL DISTRIBUTION WIDTH 15.7 % (11.5-14.5)
[2024-08-09 08:52] LABS: HEMOGLOBIN 9.6 g/dL (12.0-15.00); MEAN CORPUSCULAR HEMOGLOBIN 29.1 pg (27.00-32.0)
[2024-08-09 09:44] VITALS: BP 97/57; O2SAT 98
[2024-08-09 18:53] VITALS: BP 141/62; O2SAT 98
[2024-08-09] MEDS ORDERED: INSULIN GLARGINE,HUM.REC.ANLOG 1,000 UNITS/10 ML UNITS SUBCUTANEO SCH (21:00)
== END 2024-08-09 20:06 | disposition home or self-care (01) | DRG 981 ==
LOC: ER 15:08 → SEC-K 20:47 → MEDI 07-30 19:54 → MEDJ 07-31 14:53
PROVIDERS: General Practice; Internal Medicine; Internal Medicine Infectious Disease; ADMIT Internal Medicine; ATTEND Internal Medicine
PROC: 0JDR0ZZ Extraction of Left Foot Subcutaneous Tissue and Fascia, Open Approach (ICD-10-PCS; principal; 2024-07-30)
PROC: B44HZZZ Ultrasonography of Bilateral Lower Extremity Arteries (ICD-10-PCS; 2024-07-31)
PROC: 0JDR0ZZ Extraction of Left Foot Subcutaneous Tissue and Fascia, Open Approach (ICD-10-PCS; 2024-08-01)
PROC: 02HV33Z Insertion of Infusion Device into Superior Vena Cava, Percutaneous Approach (ICD-10-PCS; 2024-08-01)
PROC: B24BZZZ Ultrasonography of Heart with Aorta (ICD-10-PCS; 2024-08-05)
DX: E11.621 Type 2 diabetes mellitus with foot ulcer (principal); A41.9 Sepsis, unspecified organism; I96 Gangrene, not elsewhere classified; I50.20 Unspecified systolic (congestive) heart failure; L97.523 Non-pressure chronic ulcer of other part of left foot with necrosis of muscle; E11.51 Type 2 diabetes mellitus with diabetic peripheral angiopathy without gangrene; L03.032 Cellulitis of left toe; N17.9 Acute kidney failure, unspecified; B95.61 Methicillin susceptible Staphylococcus aureus infection as the cause of diseases classified elsewhere; B96.20 Unspecified Escherichia coli [E. coli] as the cause of diseases classified elsewhere; B96.89 Other specified bacterial agents as the cause of diseases classified elsewhere; E78.5 Hyperlipidemia, unspecified; I25.10 Atherosclerotic heart disease of native coronary artery without angina pectoris; E11.8 Type 2 diabetes mellitus with unspecified complications; Z79.4 Long term (current) use of insulin; L08.9 Local infection of the skin and subcutaneous tissue, unspecified; I13.10 Hypertensive heart and chronic kidney disease without heart failure, with stage 1 through stage 4 chronic kidney disease, or unspecified chronic kidney disease; N18.30 Chronic kidney disease, stage 3 unspecified

== ENCOUNTER 2024-09-29 14:03 | Inpatient (IN) | payer OTHER ==
[~2024-09-29] VITALS: Ht 170.2 cm; Wt 89.8 kg
[~2024-09-29 14:03] MED LIST changes: +ATORVASTATIN CA20 MG; +BRILINTA90 MG; +BUMETANIDE1 MG; +CHILDREN'S ASPI81 MG; +FARXIGA10 MG; +TOPROL XL25 M1
[2024-09-29] MEDS ORDERED: 0.9 % SODIUM CHLORIDE 1,000 ML IV SCH ×2 (14:45→22:15)
[2024-09-29 15:56] LABS: HEMATOCRIT 32.5 % (36.0-45.00); HEMOGLOBIN 10.8 g/dL (12.0-15.00); MEAN CELL VOLUME 89.6 fL (80.00-100.00); MEAN CORPUSCULAR HEMOGLOBIN 29.7 pg (27.00-32.0); MEAN CORPUSCULAR HGB CONC 33.2 g/dl (32.0-36.0); PLATELET COUNT 199 K/uL (150-450); RED BLOOD COUNT 3.63 M/uL (4.00-6.00); RED CELL DISTRIBUTION WIDTH 16.4 % (11.5-14.5)
[2024-09-29 16:06] LABS: ERYTHROCYTE SEDIMENTATION RATE 127 mm/hr
[2024-09-29 16:11] LABS: CALCIUM 9.5 mg/dL (8.5-10.1); CREATININE SERUM 1.45 mg/dL (0.55-1.02); GFR 35.6; POTASSIUM 4.14 mEq/L (3.5-5.1)
[2024-09-29 16:20] LABS: ABG PH 7.421 (7.35-7.45); ABG PO2 89.8 mmHg (80-100); ABG pCO2 41.8 mmHg (35-45); BASE EXCESS 1.9 mmol/l; BICARBONATE 26.6 mmol/l (23-25); SaO2 97.1 %; Tco2 27.8 mmol/l
[2024-09-29 16:26] LABS: allen test SATISFACTORY; o2 21 %; puncture site BRADIAL RIGHT
[2024-09-29 16:40] LABS: URINE APPEARANCE Clear; URINE BILIRRUBIN Negative (NEGATIVE); URINE BLOOD Negative; URINE COLOR Yellow; URINE KETONE Negative (NEGATIVE); URINE LEUKOCYTE Negative; URINE NITRATE Negative; URINE PROTEIN Negative (NEGATIVE); URINE UROBILINOGEN 0.2 E.U./dl
[2024-09-29 16:44] LABS: URINE BACTERIA 227.5 uL (0.0-1933); URINE EPITHELIAL CELLS 12.5 uL (0.0-38.8); URINE WBC 6.1 uL (0.0-23.2)
[2024-09-29 16:53] LABS: URINE CAST 1.03 uL (0.0-1.40); URINE GLUCOSE >=1000 MG/DL (NEGATIVE); URINE RBC 0.5 uL (0.0-20.8)
[2024-09-29] MEDS ORDERED: FAMOtidine 10 MG/ML (4ML VIAL) IV ONE (17:15)
[2024-09-29] MEDS ORDERED: PIPERACILLIN/TAZOBACTAM SODIUM 3.375 GM VIAL IV ONE ×2 (17:15→18:19)
[2024-09-29] MEDS ORDERED: ASPIRIN 325 MG TABLET PO ONE (17:15)
[2024-09-29] MEDS ORDERED: NITROGLYCERIN 50MG IN NSS (KIT INCLUYE LINEA) IV SCH (17:30)
[2024-09-29] MEDS ORDERED: FAMOTIDINE/PF 20 MG/2 ML VIAL ONE (18:19)
[2024-09-29] MEDS ORDERED: NITROGLYCERIN IN 5 % DEXTROSE 50 MG/250 ML BOTTLE IV ONE (18:19)
[2024-09-29] MEDS ORDERED: ATORVASTATIN CALCIUM 40 MG TABLET PO SCH (22:16)
[2024-09-29] MEDS ORDERED: VANCOMYCIN HCL 1,000 MG VIAL IV SCH (22:16)
[2024-09-29] MEDS ORDERED: ENOXAPARIN SODIUM 80 MG/0.8 ML SYRINGE SUBCUTANEO SCH (22:17)
[2024-09-29] MEDS ORDERED: ACETAMINOPHEN 500 MG GEL..CAP PO PRN (22:30)
[2024-09-30] VITALS (10 sets, daily range): BP systolic 84–119; BP diastolic 33–72; O2SAT 99–100
[2024-09-30] MEDS ORDERED: PIPERACILLIN/TAZOBACTAM SODIUM 2.25 GM in DEXTROSE 5 % IN WATER 50 ML IV SCH
[2024-09-30] MEDS ORDERED: ENOXAPARIN SODIUM 80 MG/0.8 ML SYRINGE SUBCUTANEO ONE (00:22)
[2024-09-30] MEDS ORDERED: VANCOMYCIN HCL 1,000 MG VIAL ONE (00:22)
[2024-09-30 00:31] LABS: INR 1.11; PARTIAL THROMBOPLASTIN TIME 27.4 SECONDS (22.0-34.0)
[2024-09-30] MEDS ORDERED: TICAGRELOR 90 MG TABLET PO SCH (05:00)
[2024-09-30] MEDS ORDERED: ASPIRIN 81 MG TAB.CHEW PO SCH (09:00)
[2024-09-30] MEDS ORDERED: FAMOTIDINE/PF 20 MG in 0.9 % SODIUM CHLORIDE 8 ML IV PUSH SCH (09:00)
[2024-09-30] MEDS ORDERED: CHLORHEXIDINE GLUCONATE 120 ML BOTTLE TOP ONE (09:35)
[2024-09-30] MEDS ORDERED: BUMETANIDE 1 MG TABLET PO SCH (10:43)
[2024-09-30] MEDS ORDERED: METOPROLOL TARTRATE 25 MG TABLET PO SCH (11:22)
[2024-09-30 12:28] LABS: CREATININE SERUM 1.28 mg/dL (0.55-1.02); GFR 41.11; POTASSIUM 3.63 mEq/L (3.5-5.1)
[2024-09-30] MEDS ORDERED: MEROPENEM 500 MG/VIAL VIAL IV SCH (13:00)
[2024-09-30 13:39] LABS: URINE APPEARANCE Clear; URINE BILIRRUBIN Negative (NEGATIVE); URINE BLOOD Negative; URINE COLOR Yellow; URINE KETONE Negative (NEGATIVE); URINE LEUKOCYTE Negative; URINE NITRATE Negative; URINE PROTEIN 30 (NEGATIVE); URINE UROBILINOGEN 0.2 E.U./dl
[2024-09-30 13:43] LABS: URINE BACTERIA 6.1 uL (0.0-1933); URINE EPITHELIAL CELLS 8.5 uL (0.0-38.8); URINE RBC 6.9 uL (0.0-20.8)
[2024-09-30 13:47] LABS: URINE CAST 1.03 uL (0.0-1.40); URINE GLUCOSE >=1000 MG/DL (NEGATIVE)
[2024-09-30] MEDS ORDERED: INSULIN LISPRO 1,000 UNIT/10 ML UNITS SUBCUTANEO PRN (14:00)
[2024-09-30] MEDS ORDERED: INSULIN LISPRO 1,000 UNIT/10 ML UNITS SUBCUTANEO SCH (16:00)
[2024-09-30] MEDS ORDERED: ENOXAPARIN SODIUM 80 MG/0.8 ML SYRINGE SUBCUTANEO SCH (17:00)
[2024-09-30] MEDS ORDERED: INSULIN GLARGINE,HUM.REC.ANLOG 1,000 UNITS/10 ML UNITS SUBCUTANEO SCH (21:00)
[2024-10-01] VITALS (7 sets, daily range): BP systolic 110–153; BP diastolic 46–84; O2SAT 97–100
[2024-10-01] MEDS ORDERED: VANCOMYCIN HCL 1,000 MG VIAL ONE (07:57)
[2024-10-01] MEDS ORDERED: SODIUM HYPOCHLORITE 1OZ TOP SCH (09:14)
[2024-10-01 10:59] LABS: HEMATOCRIT 31.6 % (36.0-45.00); HEMOGLOBIN 10.4 g/dL (12.0-15.00); MEAN CELL VOLUME 89.7 fL (80.00-100.00); MEAN CORPUSCULAR HEMOGLOBIN 29.4 pg (27.00-32.0); MEAN CORPUSCULAR HGB CONC 32.7 g/dl (32.0-36.0); PLATELET COUNT 177 K/uL (150-450); RED BLOOD COUNT 3.53 M/uL (4.00-6.00); RED CELL DISTRIBUTION WIDTH 16.8 % (11.5-14.5)
[2024-10-01 11:03] LABS: CALCIUM 8.7 mg/dL (8.5-10.1); CREATININE SERUM 0.92 mg/dL (0.55-1.02); GFR 60.18; POTASSIUM 4.21 mEq/L (3.5-5.1)
[2024-10-01] MEDS ORDERED: MORPHINE SULFATE 2 MG/ML CARTRIDGE IV PRN (19:15)
[2024-10-02 04:00] VITALS: BP 119/46; O2SAT 100
[2024-10-02 08:00] VITALS: BP 101/68; O2SAT 100
[2024-10-02] MEDS ORDERED: VANCOMYCIN HCL 1,000 MG VIAL ONE (08:18)
[2024-10-02] MEDS ORDERED: LISINOPRIL 5 MG TABLET PO SCH ×2 (09:00→09:37)
[2024-10-02 12:00] VITALS: BP 100/50; O2SAT 100
[2024-10-02 15:44] VITALS: BP 154/82; O2SAT 100
[2024-10-02] MEDS ORDERED: VANCOMYCIN HCL 1,000 MG VIAL IV SCH (21:00)
[2024-10-03 02:44] VITALS: BP 145/54
[2024-10-03 09:47] VITALS: BP 108/44; O2SAT 98
[2024-10-03] MEDS ORDERED: LACTULOSE 20 G/30 ML BLIST.PACK PO NR (12:30)
[2024-10-03 15:30] LABS: HEMATOCRIT 33.2 % (36.0-45.00); HEMOGLOBIN 10.5 g/dL (12.0-15.00); MEAN CELL VOLUME 90.6 fL (80.00-100.00); MEAN CORPUSCULAR HEMOGLOBIN 28.7 pg (27.00-32.0); MEAN CORPUSCULAR HGB CONC 31.7 g/dl (32.0-36.0); PLATELET COUNT 164 K/uL (150-450); RED BLOOD COUNT 3.67 M/uL (4.00-6.00); RED CELL DISTRIBUTION WIDTH 15.8 % (11.5-14.5)
[2024-10-03 15:49] LABS: CALCIUM 8.9 mg/dL (8.5-10.1); CREATININE SERUM 0.68 mg/dL (0.55-1.02); GFR 85.29; POTASSIUM 4.21 mEq/L (3.5-5.1)
[2024-10-03] MEDS ORDERED: (FF) Daptomycin 50 MG/ML IV SCH (17:00)
[2024-10-03 17:08] VITALS: BP 121/53
[2024-10-04 02:52] VITALS: BP 69/55
[2024-10-04 02:53] VITALS: BP 88/60
[2024-10-04 08:45] VITALS: BP 114/50
[2024-10-04 17:47] VITALS: BP 108/55; O2SAT 96
[2024-10-05] VITALS (7 sets, daily range): BP systolic 106–136; BP diastolic 56–66; O2SAT 100
[2024-10-05 05:36] LABS: HEMATOCRIT 30.2 % (36.0-45.00); HEMOGLOBIN 9.9 g/dL (12.0-15.00); MEAN CELL VOLUME 89.4 fL (80.00-100.00); MEAN CORPUSCULAR HEMOGLOBIN 29.2 pg (27.00-32.0); MEAN CORPUSCULAR HGB CONC 32.7 g/dl (32.0-36.0); PLATELET COUNT 164 K/uL (150-450); RED BLOOD COUNT 3.38 M/uL (4.00-6.00); RED CELL DISTRIBUTION WIDTH 16.1 % (11.5-14.5)
[2024-10-05 05:42] LABS: ALBUMIN 2.1 gm/dL (3.4-5.0); BILIRUBIN TOTAL 0.34 mg/dL (0.3-1.2); CALCIUM 8.7 mg/dL (8.5-10.1); CREATININE SERUM 1.09 mg/dL (0.55-1.02); GFR 49.48; GLOBULINA 5.1 G/DL (2.4-3.5); TOTAL PROTEIN 7.2 gm/dL (6.4-8.2)
[2024-10-05] MEDS ORDERED: 0.9 % SODIUM CHLORIDE 1,000 ML IV SCH (07:45)
[2024-10-05] MEDS ORDERED: NITROGLYCERIN IN 5 % DEXTROSE 250 ML IV SCH (14:00)
[2024-10-05] MEDS ORDERED: NITROGLYCERIN 50MG IN NSS (KIT INCLUYE LINEA) IV SCH (14:00)
[2024-10-06] VITALS (7 sets, daily range): BP systolic 95–127; BP diastolic 47–57; O2SAT 98–100
[2024-10-06] MEDS ORDERED: ISOSORBIDE DINITRATE 20 MG TABLET PO SCH (01:00)
[2024-10-06] MEDS ORDERED: ISOSORBIDE DINITRATE 10 MG TABLET PO SCH (09:00)
[2024-10-06] MEDS ORDERED: FAMOtidine 20 MG TABLET PO NR (12:00)
[2024-10-06 13:40] LABS: CALCIUM 8.6 mg/dL (8.5-10.1); CREATININE SERUM 0.8 mg/dL (0.55-1.02); GFR 70.71; POTASSIUM 3.54 mEq/L (3.5-5.1)
[2024-10-06] MEDS ORDERED: FAMOtidine 20 MG TABLET PO SCH (21:00)
[2024-10-07] VITALS (9 sets, daily range): BP systolic 90–118; BP diastolic 50–55; O2SAT 96–100
[2024-10-08] VITALS (7 sets, daily range): BP systolic 108–132; BP diastolic 42–55; O2SAT 90–97
[2024-10-08] MEDS ORDERED: METROnidazole 500 MG TABLET PO SCH (01:00)
[2024-10-08] MEDS ORDERED: CEFTRIAXONE SODIUM 2,000 MG in 0.9 % SODIUM CHLORIDE 100 ML IV SCH (09:00)
[2024-10-08] MEDS ORDERED: CLOTRIMAZOLE 30 GM TUBE TOP SCH (09:00)
[2024-10-08] MEDS ORDERED: CLOTRIMAZOLE 15 GM TUBE TOP SCH (09:00)
[2024-10-08 11:30] LABS: HEMATOCRIT 27.5 % (36.0-45.00); MEAN CELL VOLUME 89.3 fL (80.00-100.00); MEAN CORPUSCULAR HGB CONC 33.4 g/dl (32.0-36.0); PLATELET COUNT 197 K/uL (150-450); RED BLOOD COUNT 3.07 M/uL (4.00-6.00); RED CELL DISTRIBUTION WIDTH 15.9 % (11.5-14.5)
[2024-10-08 11:31] LABS: HEMOGLOBIN 9.2 g/dL (12.0-15.00); MEAN CORPUSCULAR HEMOGLOBIN 29.9 pg (27.00-32.0)
[2024-10-08 11:45] LABS: CALCIUM 8.4 mg/dL (8.5-10.1); CREATININE SERUM 0.84 mg/dL (0.55-1.02); GFR 66.84; POTASSIUM 4.17 mEq/L (3.5-5.1)
[2024-10-09] VITALS (9 sets, daily range): BP systolic 90–126; BP diastolic 40–69; O2SAT 90–98
[2024-10-10] VITALS (9 sets, daily range): BP systolic 113–150; BP diastolic 51–70; O2SAT 89–100
[2024-10-11] VITALS (8 sets, daily range): BP systolic 105–119; BP diastolic 53–57; O2SAT 90–98
[2024-10-12] VITALS (8 sets, daily range): BP systolic 93–135; BP diastolic 59–62; O2SAT 95–98
[2024-10-13] VITALS (7 sets, daily range): BP systolic 112–126; BP diastolic 56–69; O2SAT 93–97
[2024-10-13 08:37] LABS: MEAN CELL VOLUME 90.1 fL (80.00-100.00); MEAN CORPUSCULAR HEMOGLOBIN 29.6 pg (27.00-32.0); MEAN CORPUSCULAR HGB CONC 32.8 g/dl (32.0-36.0); PLATELET COUNT 302 K/uL (150-450); RED CELL DISTRIBUTION WIDTH 16.1 % (11.5-14.5)
[2024-10-13 08:39] LABS: HEMOGLOBIN 8.9 g/dL (12.0-15.00)
[2024-10-13 09:19] LABS: CALCIUM 8.5 mg/dL (8.5-10.1); CREATININE SERUM 0.73 mg/dL (0.55-1.02); GFR 78.59; POTASSIUM 4.29 mEq/L (3.5-5.1)
[2024-10-14] VITALS (9 sets, daily range): BP systolic 90–151; BP diastolic 48–60; O2SAT 90–97
[2024-10-14] MEDS ORDERED: ACETAMINOPHEN 500 MG GEL..CAP PO PRN (01:30)
[2024-10-14] MEDS ORDERED: ONDANSETRON HCL 4 MG in 0.9 % SODIUM CHLORIDE 50 ML IV PRN (08:00)
[2024-10-14] MEDS ORDERED: ENOXAPARIN SODIUM 40 MG/0.4 ML SYRINGE SUBCUTANEO SCH (09:00)
[2024-10-15] VITALS (7 sets, daily range): BP systolic 111–123; BP diastolic 50–68; O2SAT 90–98
[2024-10-15] MEDS ORDERED: BUTALB/ACETAMINOPHEN/CAFFEINE 1 TAB TABLET PO PRN (11:15)
[2024-10-16] VITALS (9 sets, daily range): BP systolic 107–150; BP diastolic 59–65; O2SAT 90–98
[2024-10-16 05:42] LABS: HEMATOCRIT 24.1 % (36.0-45.00); MEAN CELL VOLUME 89.6 fL (80.00-100.00); MEAN CORPUSCULAR HGB CONC 33.2 g/dl (32.0-36.0); PLATELET COUNT 273 K/uL (150-450); RED BLOOD COUNT 2.69 M/uL (4.00-6.00); RED CELL DISTRIBUTION WIDTH 16.4 % (11.5-14.5)
[2024-10-16 05:44] LABS: MEAN CORPUSCULAR HEMOGLOBIN 29.7 pg (27.00-32.0)
[2024-10-16 06:28] LABS: ALBUMIN 1.9 gm/dL (3.4-5.0); BILIRUBIN TOTAL 0.16 mg/dL (0.3-1.2); CALCIUM 8.2 mg/dL (8.5-10.1); CREATININE SERUM 0.94 mg/dL (0.55-1.02); GFR 58.7; GLOBULINA 4.5 G/DL (2.4-3.5); POTASSIUM 4.05 mEq/L (3.5-5.1); TOTAL PROTEIN 6.4 gm/dL (6.4-8.2)
[2024-10-17] VITALS (8 sets, daily range): BP systolic 124–133; BP diastolic 58–75; O2SAT 90–97
[2024-10-17 10:18] LABS: HEMOGLOBIN 10.1 g/dL (12.0-15.00); MEAN CELL VOLUME 90.3 fL (80.00-100.00); MEAN CORPUSCULAR HEMOGLOBIN 29.4 pg (27.00-32.0); MEAN CORPUSCULAR HGB CONC 32.6 g/dl (32.0-36.0); PLATELET COUNT 327 K/uL (150-450); RED BLOOD COUNT 3.43 M/uL (4.00-6.00); RED CELL DISTRIBUTION WIDTH 16.3 % (11.5-14.5)
[2024-10-18] VITALS (9 sets, daily range): BP systolic 91–113; BP diastolic 45–66; O2SAT 92–99
[2024-10-19] VITALS (9 sets, daily range): BP systolic 103–130; BP diastolic 45–75; O2SAT 96–100
[2024-10-19] MEDS ORDERED: GUAIFENESIN 200 MG/10 ML BLIST.PACK PO SCH (14:00)
[2024-10-19] MEDS ORDERED: IPRATROPIUM BROMIDE 0.5 MG/2.5 ML AMPUL.NEB IH NR (14:00)
[2024-10-19] MEDS ORDERED: IPRATROPIUM BROMIDE 0.5 MG/2.5 ML AMPUL.NEB IH SCH (21:00)
[2024-10-20] VITALS (9 sets, daily range): BP systolic 117–148; BP diastolic 50–66; O2SAT 90–100
[2024-10-20] MEDS ORDERED: CODEINE PHOSPHATE/GUAIFENESIN 5 ML ML PO SCH (12:00)
[2024-10-20 12:01] LABS: HEMATOCRIT 33.5 % (36.0-45.00); HEMOGLOBIN 10.7 g/dL (12.0-15.00); MEAN CORPUSCULAR HGB CONC 31.9 g/dl (32.0-36.0); PLATELET COUNT 340 K/uL (150-450); RED BLOOD COUNT 3.68 M/uL (4.00-6.00); RED CELL DISTRIBUTION WIDTH 17.3 % (11.5-14.5)
[2024-10-21] VITALS (11 sets, daily range): BP systolic 109–126; BP diastolic 55–61; O2SAT 83–100
[2024-10-21] MEDS ORDERED: LOSARTAN POTASSIUM 25 MG TABLET PO SCH (09:00)
[2024-10-21] MEDS ORDERED: BUDESONIDE 0.5 MG/2 ML AMPUL.NEB IH SCH (09:00)
[2024-10-21] MEDS ORDERED: IPRATROPIUM BROMIDE 0.5 MG/2.5 ML AMPUL.NEB IH SCH (12:00)
[2024-10-22] VITALS (8 sets, daily range): BP systolic 114–143; BP diastolic 63–89; O2SAT 92–100
[2024-10-22 11:31] LABS: CALCIUM 8.3 mg/dL (8.5-10.1); CREATININE SERUM 0.89 mg/dL (0.55-1.02); GFR 62.35; POTASSIUM 4.39 mEq/L (3.5-5.1)
[2024-10-23] VITALS (7 sets, daily range): BP systolic 111–142; BP diastolic 50–67; O2SAT 97–99
[2024-10-23] MEDS ORDERED: SODIUM CHLORIDE FOR INHALATION 1 VIAL.NEB IH SCH (09:00)
== END 2024-10-23 20:06 | disposition home or self-care (01) | DRG 281 ==
LOC: ER 14:06 → ICU 22:19 → ICU-2 22:19 → ICU 09-30 01:27 → MEDJ 10-02 18:30
PROVIDERS: Emergency Medicine; General Practice; ADMIT Student in an Organized Health Care Education/Training Program; ATTEND Student in an Organized Health Care Education/Training Program
PROC: B24BZZZ Ultrasonography of Heart with Aorta (ICD-10-PCS; 2024-09-29)
PROC: 8E0ZXY6 Isolation (ICD-10-PCS; 2024-09-30)
PROC: 4A12X4Z Monitoring of Cardiac Electrical Activity, External Approach (ICD-10-PCS; principal; 2024-10-02)
PROC: 30233N1 Transfusion of Nonautologous Red Blood Cells into Peripheral Vein, Percutaneous Approach (ICD-10-PCS; 2024-10-16)
DX: E11.52 Type 2 diabetes mellitus with diabetic peripheral angiopathy with gangrene (principal); I13.0 Hypertensive heart and chronic kidney disease with heart failure and stage 1 through stage 4 chronic kidney disease, or unspecified chronic kidney disease; I21.A1 Myocardial infarction type 2; I24.9 Acute ischemic heart disease, unspecified; I50.20 Unspecified systolic (congestive) heart failure; I96 Gangrene, not elsewhere classified; N17.9 Acute kidney failure, unspecified; R78.81 Bacteremia; M86.172 Other acute osteomyelitis, left ankle and foot; E11.69 Type 2 diabetes mellitus with other specified complication; E11.621 Type 2 diabetes mellitus with foot ulcer; E11.22 Type 2 diabetes mellitus with diabetic chronic kidney disease; L97.529 Non-pressure chronic ulcer of other part of left foot with unspecified severity; Z79.4 Long term (current) use of insulin; J44.9 Chronic obstructive pulmonary disease, unspecified; Z95.5 Presence of coronary angioplasty implant and graft; B95.62 Methicillin resistant Staphylococcus aureus infection as the cause of diseases classified elsewhere; B96.20 Unspecified Escherichia coli [E. coli] as the cause of diseases classified elsewhere; D64.9 Anemia, unspecified; N18.30 Chronic kidney disease, stage 3 unspecified

== ENCOUNTER 2024-10-28 14:34 | Inpatient (IN) | payer OTHER ==
[~2024-10-28] VITALS: Ht 167.6 cm; Wt 113.4 kg
[2024-10-28] MEDS ORDERED: KETOROLAC TROMETHAMINE 30 MG VIAL IU ONE (15:15)
[2024-10-28 16:22] LABS: HEMATOCRIT 32.1 % (36.0-45.00); HEMOGLOBIN 10.4 g/dL (12.0-15.00); MEAN CELL VOLUME 90.6 fL (80.00-100.00); MEAN CORPUSCULAR HEMOGLOBIN 29.3 pg (27.00-32.0); MEAN CORPUSCULAR HGB CONC 32.3 g/dl (32.0-36.0); PLATELET COUNT 182 K/uL (150-450); RED BLOOD COUNT 3.54 M/uL (4.00-6.00); RED CELL DISTRIBUTION WIDTH 17.5 % (11.5-14.5)
[2024-10-28 16:48] LABS: INR 1.35; PROTHROMBIN TIME 14.4 SECONDS (9.0-11.5)
[2024-10-28 17:15] LABS: PARTIAL THROMBOPLASTIN TIME 58.8 SECONDS (22.0-34.0)
[2024-10-28 17:36] LABS: ALBUMIN 2.1 gm/dL (3.4-5.0); BILIRUBIN TOTAL 0.42 mg/dL (0.3-1.2); CALCIUM 8.5 mg/dL (8.5-10.1); CREATININE SERUM 1.01 mg/dL (0.55-1.02); GFR 53.88; GLOBULINA 5.9 G/DL (2.4-3.5); POTASSIUM 4.15 mEq/L (3.5-5.1)
[2024-10-28] MEDS ORDERED: CEFTRIAXONE SODIUM 1,000 MG VIAL IV ONE (18:30)
[2024-10-28] MEDS ORDERED: ACETAMINOPHEN 500 MG GEL..CAP PO PRN (19:30)
[2024-10-28] MEDS ORDERED: METRONIDAZOLE/SODIUM CHLORIDE 100 ML IV SCH (19:31)
[2024-10-28] MEDS ORDERED: VANCOMYCIN HCL 1,000 MG VIAL IV SCH (19:31)
[2024-10-28] MEDS ORDERED: INSULIN LISPRO 1,000 UNIT/10 ML UNITS SUBCUTANEO PRN (19:45)
[2024-10-28] MEDS ORDERED: 0.9 % SODIUM CHLORIDE 1,000 ML IV SCH (19:45)
[2024-10-28] MEDS ORDERED: DEXTROSE 50 % IN WATER 0.5 G/ML DISP.SYRIN IV PRN (19:45)
[2024-10-28 20:09] VITALS: BP 102/62
[2024-10-28 20:59] LABS: D DIMER 2.22 MG/L; PARTIAL THROMBOPLASTIN TIME 27.4 SECONDS (22.0-34.0)
[2024-10-28] MEDS ORDERED: FUROsemide 20 MG/2 ML VIAL IV SCH (21:00)
[2024-10-28 21:06] LABS: INR 1.31
[2024-10-28 21:26] LABS: COVID-19 AG NEGATIVE (NEGATIVE)
[2024-10-29 04:55] VITALS: BP 127/55; O2SAT 88
[2024-10-29] MEDS ORDERED: INSULIN GLARGINE,HUM.REC.ANLOG 1,000 UNITS/10 ML UNITS SUBCUTANEO SCH (09:00)
[2024-10-29] MEDS ORDERED: CEFTRIAXONE SODIUM 2,000 MG in 0.9 % SODIUM CHLORIDE 100 ML IV SCH (09:00)
[2024-10-29] MEDS ORDERED: ENOXAPARIN SODIUM 40 MG/0.4 ML SYRINGE SUBCUTANEO SCH (09:00)
[2024-10-29] MEDS ORDERED: METOPROLOL SUCCINATE 25 MG TAB.SR.24H PO SCH (09:00)
[2024-10-29] MEDS ORDERED: ASPIRIN 81 MG TAB.CHEW PO SCH (09:00)
[2024-10-29] MEDS ORDERED: TICAGRELOR 90 MG TABLET PO SCH (09:00)
[2024-10-29] MEDS ORDERED: ATORVASTATIN CALCIUM 40 MG TABLET PO SCH (09:00)
[2024-10-29] MEDS ORDERED: FAMOTIDINE/PF 20 MG in 0.9 % SODIUM CHLORIDE 8 ML IV PUSH SCH (09:00)
[2024-10-29 09:49] VITALS: BP 100/50; O2SAT 97
[2024-10-29] MEDS ORDERED: GABAPENTIN 800 MG TABLET PO SCH (17:00)
[2024-10-29] MEDS ORDERED: (FF) Daptomycin 50 MG/ML IV SCH (17:00)
[2024-10-29 19:30] VITALS: BP 133/59
[2024-10-29] MEDS ORDERED: MORPHINE SULFATE 2 MG/ML CARTRIDGE IV PRN (19:30)
[2024-10-29] MEDS ORDERED: TRAMADOL HCL 50 MG TABLET PO PRN (21:15)
[2024-10-29] MEDS ORDERED: ORPHENADRINE CITRATE 100 MG TABLET PO SCH (21:22)
[2024-10-29] MEDS ORDERED: LIDOCAINE 5% 1 PATCH ADH. TOP SCH (21:30)
[2024-10-30 02:27] VITALS: BP 90/50; O2SAT 99
[2024-10-30 06:38] LABS: HEMOGLOBIN 9.6 g/dL (12.0-15.00); MEAN CELL VOLUME 88.9 fL (80.00-100.00); MEAN CORPUSCULAR HEMOGLOBIN 29.4 pg (27.00-32.0); MEAN CORPUSCULAR HGB CONC 33.1 g/dl (32.0-36.0); PLATELET COUNT 172 K/uL (150-450); RED BLOOD COUNT 3.27 M/uL (4.00-6.00)
[2024-10-30 07:07] LABS: CALCIUM 7.6 mg/dL (8.5-10.1); CREATININE SERUM 1.16 mg/dL (0.55-1.02); GFR 45.92; POTASSIUM 3.18 mEq/L (3.5-5.1)
[2024-10-30] MEDS ORDERED: LIDOCAINE 1 EACH ADH..PATCH TOP SCH (09:00)
[2024-10-30] MEDS ORDERED: Duloxetine HCl 30 MG CAPSULE.DR PO SCH (09:00)
[2024-10-30] MEDS ORDERED: TICAGRELOR 90 MG TABLET PO SCH (09:00)
[2024-10-30 09:10] VITALS: BP 95/53; O2SAT 96
[2024-10-30 16:43] VITALS: BP 93/51; O2SAT 100
[2024-10-31 01:06] VITALS: BP 93/50; O2SAT 97
[2024-10-31 06:12] LABS: HEMATOCRIT 29.2 % (36.0-45.00); HEMOGLOBIN 9.5 g/dL (12.0-15.00); MEAN CELL VOLUME 89.2 fL (80.00-100.00); MEAN CORPUSCULAR HEMOGLOBIN 28.8 pg (27.00-32.0); MEAN CORPUSCULAR HGB CONC 32.3 g/dl (32.0-36.0); PLATELET COUNT 178 K/uL (150-450); RED BLOOD COUNT 3.28 M/uL (4.00-6.00); RED CELL DISTRIBUTION WIDTH 16.9 % (11.5-14.5)
[2024-10-31 07:06] LABS: ALBUMIN 1.7 gm/dL (3.4-5.0); BILIRUBIN TOTAL 0.34 mg/dL (0.3-1.2); CALCIUM 7.8 mg/dL (8.5-10.1); CREATININE SERUM 1.34 mg/dL (0.55-1.02); GFR 38.88; GLOBULINA 4.6 G/DL (2.4-3.5); POTASSIUM 4.05 mEq/L (3.5-5.1); TOTAL PROTEIN 6.3 gm/dL (6.4-8.2)
[2024-10-31] MEDS ORDERED: MEROPENEM 500 MG/VIAL VIAL IV SCH (09:00)
[2024-10-31] MEDS ORDERED: LIDOCAINE 5% 1 PATCH ADH. TOP SCH (09:00)
[2024-10-31 09:14] VITALS: BP 114/90; O2SAT 99
[2024-10-31] MEDS ORDERED: CEFTAZIDIME/AVIBACTAM 1.25GM/100ML NSS PB IV SCH (09:30)
[2024-10-31 17:30] VITALS: BP 115/76; O2SAT 95
[2024-11-01 02:25] VITALS: BP 151/97; O2SAT 97
[2024-11-01] MEDS ORDERED: FAMOtidine 20 MG TABLET PO SCH (09:00)
[2024-11-01] MEDS ORDERED: INSULIN GLARGINE,HUM.REC.ANLOG 1,000 UNITS/10 ML UNITS SUBCUTANEO SCH (09:00)
[2024-11-01 09:57] VITALS: BP 130/50; O2SAT 97
[2024-11-01 15:43] LABS: PH,URINE 5.5 (5.0-8.0); URINE APPEARANCE Turbid; URINE BILIRRUBIN Negative (NEGATIVE); URINE BLOOD Moderate; URINE COLOR Yellow; URINE GLUCOSE Negative (NEGATIVE); URINE KETONE Negative (NEGATIVE); URINE LEUKOCYTE Large; URINE NITRATE Negative; URINE PROTEIN 30 (NEGATIVE); URINE UROBILINOGEN 0.2 E.U./dl
[2024-11-01 15:47] LABS: URINE BACTERIA 1330.4 uL (0.0-1933); URINE CAST 1.62 uL (0.0-1.40); URINE EPITHELIAL CELLS 15.1 uL (0.0-38.8); URINE RBC 300.2 uL (0.0-20.8)
[2024-11-01 16:01] LABS: HEMATOCRIT 32.4 % (36.0-45.00); HEMOGLOBIN 10.4 g/dL (12.0-15.00); MEAN CELL VOLUME 88.4 fL (80.00-100.00); MEAN CORPUSCULAR HEMOGLOBIN 28.4 pg (27.00-32.0); MEAN CORPUSCULAR HGB CONC 32.1 g/dl (32.0-36.0); PLATELET COUNT 200 K/uL (150-450); RED BLOOD COUNT 3.66 M/uL (4.00-6.00); RED CELL DISTRIBUTION WIDTH 17.6 % (11.5-14.5)
[2024-11-01 16:27] LABS: CALCIUM 8.2 mg/dL (8.5-10.1); CREATININE SERUM 1.4 mg/dL (0.55-1.02); GFR 36.96; POTASSIUM 3.48 mEq/L (3.5-5.1)
[2024-11-01 18:15] VITALS: BP 160/90
[2024-11-02 02:26] VITALS: BP 91/57; O2SAT 95
[2024-11-02 08:18] LABS: MEAN CELL VOLUME 88.6 fL (80.00-100.00); MEAN CORPUSCULAR HGB CONC 32.9 g/dl (32.0-36.0); PLATELET COUNT 171 K/uL (150-450); RED BLOOD COUNT 3.05 M/uL (4.00-6.00); RED CELL DISTRIBUTION WIDTH 17.2 % (11.5-14.5)
[2024-11-02 08:19] LABS: HEMOGLOBIN 8.9 g/dL (12.0-15.00); MEAN CORPUSCULAR HEMOGLOBIN 29.1 pg (27.00-32.0)
[2024-11-02 08:23] LABS: CREATININE SERUM 1.29 mg/dL (0.55-1.02); GFR 40.62; POTASSIUM 3.5 mEq/L (3.5-5.1)
[2024-11-02 09:57] VITALS: BP 104/53; O2SAT 97
[2024-11-02] MEDS ORDERED: HALOPERIDOL LACTATE 5 MG/ML AMPUL IM PRN (10:30)
[2024-11-02 20:05] VITALS: BP 1113/43; O2SAT 98
[2024-11-03 01:35] VITALS: BP 96/56
[2024-11-03 09:27] VITALS: BP 90/50; O2SAT 94
[2024-11-03] MEDS ORDERED: METROnidazole 500 MG TABLET PO SCH (17:00)
[2024-11-03 17:34] VITALS: BP 118/71; O2SAT 96
[2024-11-04 01:31] VITALS: BP 106/45
[2024-11-04 04:56] LABS: MEAN CORPUSCULAR HGB CONC 32.7 g/dl (32.0-36.0); PLATELET COUNT 224 K/uL (150-450); RED CELL DISTRIBUTION WIDTH 17.6 % (11.5-14.5)
[2024-11-04 04:58] LABS: HEMOGLOBIN 9.5 g/dL (12.0-15.00); MEAN CORPUSCULAR HEMOGLOBIN 28.7 pg (27.00-32.0)
[2024-11-04 05:15] LABS: CALCIUM 8.1 mg/dL (8.5-10.1); CREATININE SERUM 1.24 mg/dL (0.55-1.02); GFR 42.52; POTASSIUM 3.54 mEq/L (3.5-5.1)
[2024-11-04 08:24] VITALS: BP 107/60; O2SAT 94
[2024-11-04 18:14] VITALS: BP 127/50; O2SAT 97
[2024-11-05 01:16] VITALS: BP 92/54
[2024-11-05 08:42] VITALS: BP 126/77
[2024-11-05 08:46] LABS: HEMATOCRIT 28.1 % (36.0-45.00); MEAN CELL VOLUME 89.5 fL (80.00-100.00); MEAN CORPUSCULAR HEMOGLOBIN 28.7 pg (27.00-32.0); PLATELET COUNT 235 K/uL (150-450); RED BLOOD COUNT 3.14 M/uL (4.00-6.00)
[2024-11-05] MEDS ORDERED: VANCOMYCIN HCL 5 MG/ML REDILUIDO IV SCH (17:00)
[2024-11-05 17:08] VITALS: BP 150/83; O2SAT 100
[2024-11-05] MEDS ORDERED: INSULIN NPH HUMAN ISOPHANE 1,000 UNITS/10 ML UNITS SUBCUTANEO ONE (22:41)
[2024-11-05] MEDS ORDERED: INSULIN REGULAR, HUMAN 1,000 UNIT/10 ML UNITS ONE (22:41)
[2024-11-06 00:58] VITALS: BP 151/91
[2024-11-06 08:46] VITALS: BP 104/69; O2SAT 95
[2024-11-06] MEDS ORDERED: INSULIN GLARGINE,HUM.REC.ANLOG 1,000 UNITS/10 ML UNITS SUBCUTANEO SCH (09:00)
[2024-11-06 15:52] LABS: CALCIUM 8.1 mg/dL (8.5-10.1); CREATININE SERUM 1.25 mg/dL (0.55-1.02); GFR 42.13; POTASSIUM 3.81 mEq/L (3.5-5.1)
[2024-11-06 17:07] VITALS: BP 108/72; O2SAT 97
[2024-11-07 01:08] VITALS: BP 115/50
[2024-11-07 05:43] LABS: HEMATOCRIT 26.1 % (36.0-45.00); MEAN CELL VOLUME 88.9 fL (80.00-100.00); PLATELET COUNT 245 K/uL (150-450); RED BLOOD COUNT 2.93 M/uL (4.00-6.00)
[2024-11-07 05:48] LABS: ERYTHROCYTE SEDIMENTATION RATE > 130 mm/hr
[2024-11-07 05:49] LABS: HEMOGLOBIN 8.6 g/dL (12.0-15.00); MEAN CORPUSCULAR HEMOGLOBIN 29.3 pg (27.00-32.0)
[2024-11-07 09:38] VITALS: BP 119/89; O2SAT 98
[2024-11-07 18:09] VITALS: BP 99/59
[2024-11-08 02:35] VITALS: BP 138/77; O2SAT 93
[2024-11-08 08:59] VITALS: BP 176/77
[2024-11-08] MEDS ORDERED: VANCOMYCIN HCL 1,000 MG VIAL IV SCH (09:00)
[2024-11-08 17:58] VITALS: BP 127/62
[2024-11-09 02:00] VITALS: BP 136/58; O2SAT 95
[2024-11-09 09:00] VITALS: BP 105/50; O2SAT 95
[2024-11-09] MEDS ORDERED: SODIUM CHLORIDE 0.45 % 1,000 ML IV SCH (13:45)
[2024-11-09 18:41] VITALS: BP 91/63
[2024-11-09 19:24] LABS: HEMATOCRIT 28.4 % (36.0-45.00); HEMOGLOBIN 9.4 g/dL (12.0-15.00); MEAN CORPUSCULAR HEMOGLOBIN 29.3 pg (27.00-32.0); PLATELET COUNT 292 K/uL (150-450); RED BLOOD COUNT 3.19 M/uL (4.00-6.00); RED CELL DISTRIBUTION WIDTH 18.3 % (11.5-14.5)
[2024-11-10 01:36] VITALS: BP 114/69; O2SAT 91
[2024-11-10] MEDS ORDERED: INSULIN GLARGINE,HUM.REC.ANLOG 1,000 UNITS/10 ML UNITS SUBCUTANEO SCH (09:00)
[2024-11-10 09:27] VITALS: BP 141/65; O2SAT 95
[2024-11-10 10:17] LABS: ALBUMIN 1.6 gm/dL (3.4-5.0); BILIRUBIN TOTAL 0.63 mg/dL (0.3-1.2); CALCIUM 7.8 mg/dL (8.5-10.1); CREATININE SERUM 0.76 mg/dL (0.55-1.02); GFR 74.81; GLOBULINA 4.8 G/DL (2.4-3.5); POTASSIUM 4.29 mEq/L (3.5-5.1); TOTAL PROTEIN 6.4 gm/dL (6.4-8.2)
[2024-11-10] MEDS ORDERED: METROnidazole 500 MG TABLET PO SCH (21:00)
[2024-11-11] MEDS ORDERED: CEFTAZIDIME/AVIBACTAM 2.5 GM VIAL IV SCH (01:00)
[2024-11-11 02:35] VITALS: BP 114/52; O2SAT 98
[2024-11-11 08:53] VITALS: BP 95/42; O2SAT 99
[2024-11-11 17:00] VITALS: BP 148/75; O2SAT 95
[2024-11-12 03:00] VITALS: BP 98/56; O2SAT 97
[2024-11-12 08:55] VITALS: BP 118/71; O2SAT 97
[2024-11-12] MEDS ORDERED: INSULIN GLARGINE,HUM.REC.ANLOG 1,000 UNITS/10 ML UNITS SUBCUTANEO SCH (09:00)
[2024-11-12 09:12] LABS: HEMATOCRIT 26.7 % (36.0-45.00); MEAN CELL VOLUME 89.7 fL (80.00-100.00); MEAN CORPUSCULAR HGB CONC 33.4 g/dl (32.0-36.0); PLATELET COUNT 323 K/uL (150-450); RED BLOOD COUNT 2.98 M/uL (4.00-6.00)
[2024-11-12 09:13] LABS: HEMOGLOBIN 8.9 g/dL (12.0-15.00); MEAN CORPUSCULAR HEMOGLOBIN 29.8 pg (27.00-32.0)
[2024-11-12 10:05] LABS: ALBUMIN 1.5 gm/dL (3.4-5.0); BILIRUBIN TOTAL 0.69 mg/dL (0.3-1.2); CALCIUM 8.1 mg/dL (8.5-10.1); CREATININE SERUM 0.67 mg/dL (0.55-1.02); GFR 86.52; GLOBULINA 4.9 G/DL (2.4-3.5); POTASSIUM 4.04 mEq/L (3.5-5.1); TOTAL PROTEIN 6.4 gm/dL (6.4-8.2)
[2024-11-12] MEDS ORDERED: VANCOMYCIN HCL 5 MG/ML REDILUIDO IV SCH (17:00)
[2024-11-12 18:40] VITALS: BP 105/47
[2024-11-13 04:55] VITALS: BP 114/58
[2024-11-13 09:36] VITALS: BP 90/63; O2SAT 98
[2024-11-13] MEDS ORDERED: SOD FERRIC GLUC COMPLX/SUCROSE 62.5 MG/5 ML AMPUL IV NR (18:30)
[2024-11-13 18:44] VITALS: BP 150/85; O2SAT 95
[2024-11-14 01:28] VITALS: BP 132/77
[2024-11-14 08:01] LABS: HEMATOCRIT 29.4 % (36.0-45.00); HEMOGLOBIN 9.3 g/dL (12.0-15.00); MEAN CELL VOLUME 92.7 fL (80.00-100.00); MEAN CORPUSCULAR HEMOGLOBIN 29.5 pg (27.00-32.0); MEAN CORPUSCULAR HGB CONC 31.8 g/dl (32.0-36.0); PLATELET COUNT 329 K/uL (150-450); RED BLOOD COUNT 3.17 M/uL (4.00-6.00); RED CELL DISTRIBUTION WIDTH 20.7 % (11.5-14.5)
[2024-11-14 11:08] VITALS: BP 134/80
[2024-11-14] MEDS ORDERED: ACETAMINOPHEN 325 MG TABLET PO SCH (13:00)
[2024-11-14 17:28] VITALS: BP 90/57
[2024-11-15 03:08] VITALS: BP 130/74; O2SAT 97
[2024-11-15 08:00] VITALS: BP 118/62
[2024-11-15 17:04] VITALS: BP 105/58
[2024-11-16 02:28] VITALS: BP 119/52; O2SAT 96
[2024-11-16 08:00] VITALS: BP 129/53; O2SAT 96
[2024-11-16 17:24] VITALS: BP 90/56
[2024-11-17 01:18] VITALS: BP 90/50; O2SAT 99
[2024-11-17 10:00] VITALS: BP 113/54; O2SAT 97
[2024-11-17 11:12] LABS: HEMATOCRIT 27.1 % (36.0-45.00); MEAN CELL VOLUME 92.6 fL (80.00-100.00); MEAN CORPUSCULAR HEMOGLOBIN 30.3 pg (27.00-32.0); MEAN CORPUSCULAR HGB CONC 32.8 g/dl (32.0-36.0); PLATELET COUNT 331 K/uL (150-450); RED BLOOD COUNT 2.93 M/uL (4.00-6.00); RED CELL DISTRIBUTION WIDTH 21.9 % (11.5-14.5)
[2024-11-17 11:13] LABS: HEMOGLOBIN 8.9 g/dL (12.0-15.00)
[2024-11-17 12:09] LABS: ALBUMIN 1.6 gm/dL (3.4-5.0); BILIRUBIN TOTAL 0.39 mg/dL (0.3-1.2); CREATININE SERUM 0.62 mg/dL (0.55-1.02); GFR 94.62; GLOBULINA 4.9 G/DL (2.4-3.5); POTASSIUM 4.5 mEq/L (3.5-5.1); TOTAL PROTEIN 6.5 gm/dL (6.4-8.2)
== END 2024-11-17 14:14 | disposition home or self-care (01) | DRG 872 ==
LOC: ER 14:34 → MEDI 19:44 → MEDJ 10-31 13:48
PROVIDERS: General Practice; Internal Medicine; ADMIT Student in an Organized Health Care Education/Training Program; ATTEND Student in an Organized Health Care Education/Training Program
PROC: 8E0ZXY6 Isolation (ICD-10-PCS; principal; 2024-10-31)
PROC: 02PYX3Z Removal of Infusion Device from Great Vessel, External Approach (ICD-10-PCS; 2024-10-31)
PROC: B020ZZZ Computerized Tomography (CT Scan) of Brain (ICD-10-PCS; 2024-11-04)
PROC: B020ZZZ Computerized Tomography (CT Scan) of Brain (ICD-10-PCS; 2024-11-04)
PROC: 05HM33Z Insertion of Infusion Device into Right Internal Jugular Vein, Percutaneous Approach (ICD-10-PCS; 2024-11-07)
PROC: B543ZZA Ultrasonography of Right Jugular Veins, Guidance (ICD-10-PCS; 2024-11-07)
PROC: 3E0F7GC Introduction of Other Therapeutic Substance into Respiratory Tract, Via Natural or Artificial Opening (ICD-10-PCS; 2024-11-16)
DX: A41.59 Other Gram-negative sepsis (principal); E11.52 Type 2 diabetes mellitus with diabetic peripheral angiopathy with gangrene; L97.528 Non-pressure chronic ulcer of other part of left foot with other specified severity; L97.518 Non-pressure chronic ulcer of other part of right foot with other specified severity; M86.172 Other acute osteomyelitis, left ankle and foot; T80.211A Bloodstream infection due to central venous catheter, initial encounter; J90 Pleural effusion, not elsewhere classified; B37.49 Other urogenital candidiasis; N17.9 Acute kidney failure, unspecified; A41.52 Sepsis due to Pseudomonas; E11.621 Type 2 diabetes mellitus with foot ulcer; E11.65 Type 2 diabetes mellitus with hyperglycemia; R47.1 Dysarthria and anarthria; R41.82 Altered mental status, unspecified; M79.622 Pain in left upper arm; M54.2 Cervicalgia; J45.909 Unspecified asthma, uncomplicated; I13.10 Hypertensive heart and chronic kidney disease without heart failure, with stage 1 through stage 4 chronic kidney disease, or unspecified chronic kidney disease; I25.10 Atherosclerotic heart disease of native coronary artery without angina pectoris; E11.22 Type 2 diabetes mellitus with diabetic chronic kidney disease; N18.31 Chronic kidney disease, stage 3a; Z88.1 Allergy status to other antibiotic agents; Z79.4 Long term (current) use of insulin; Z89.422 Acquired absence of other left toe(s)